=== PATIENT | male | born 1950 | race Caucasian/White ===

== ENCOUNTER → 2021-10-11 14:09 | Outpatient (BNVA) | payer MEDICARE, SELFPAY | PROVIDERS: PCP Internal Medicine; Visit Provider Psychiatry & Neurology Neurology | DX: G25.0 Essential tremor (principal); G47.9 Sleep disorder, unspecified | CPT/HCPCS: 99212 ==

== ENCOUNTER 2023-09-07 10:13 | Outpatient (AMB) | payer MEDICARE, SELFPAY ==
--- NOTE | 2023-09-07 10:15 | MHC.OFFVIS ---
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 Patient Services Technician Required: No Allergies aspirin [ASPIRIN] Allergy (Severe, Verified 09/07/23 10:16) CANNOT TAKE-RENAL TRANSPLANT Medication List - Last Reconciled 09/07/23 by Ester Ontiveros MD acetaminophen (Tylenol Extra Strength) 500 mg PO Q6H PRN allopurinol 100 mg PO DAILY atorvastatin 40 mg PO DAILY lorazepam 2 mg PO BEDTIME PRN losartan 25 mg PO DAILY metoprolol succinate ER 25 mg PO DAILY mycophenolate sodium (Myfortic) 4 mg PO BID paricalcitol 2 mcg PO 2XW prednisone 2.5 mg PO DAILY primidone 100 mg (2 x 50 mg) PO BID HPI Comments Details: 73y/o male comes for follow up of his familial tremors after 2 years . His tremors have worsenned and primiodne is not helping him.He tried primidone 50 mg 6 tabs qam and it did not help. He cannot write, had trouble eating with a fork, any actions that needs hand dexterity is hard. He is able to drink fluids.In the evenings he takes alcohol- gin and tonic and sometimes beer which helps his tremor His tremors are worse in the mornings No side effects from primidone PFSH Medical History (Updated 10/11/21 @ 14:24 by Ester Ontiveros MD) CAD (coronary artery disease) Cataract Heart disease COPD (chronic obstructive pulmonary disease) HTN (hypertension) Surgical History (Updated 09/07/23 @ 10:30 by Ester Ontiveros MD) Kidney transplant recipient Hx of shoulder surgery H/O heart surgery Hx of cholecystectomy Family History Father Tremor Family/Other Cancer Social History Alcohol intake: current Patient Tobacco Use Status: Never used Tobacco Physical Exam Vital Signs: Last Vital Signs Pulse 72 09/07/23 10:16 Resp 17 09/07/23 10:16 BP 120/60 09/07/23 10:16 Pulse Ox 99 09/07/23 10:16 Oxygen Delivery Method Room Air 09/07/23 10:16 Const General: cooperative, healthy appearing and comfortable Nutritional Appearance: average body habitus Orientation/consciousness: patient oriented x3 Eyes Pupils: Equal, round and reactive pupils present Neuro Other: BilUE action and postural tremors General: patient oriented x3, tone normal, moves all extremities and no focal motor deficits Cranial nerves: Yes Equal, round and reactive pupils present, Yes Bilaterally intact EOM present, Yes Nystagmus not present, Yes Normal facial strength present and Yes Midline tongue present Motor exam (neuro): 5/5 motor strength present throughout Coordination: [id number] test normal Assessment & Plan Assessment & Plan (1) 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
[2023-09-07 10:16] VITALS: BP 120/60; PULSE 72; RESP 17; O2SAT 99
== END 2023-09-07 10:44 | disposition home or self-care (01) ==
PROVIDERS: PCP Internal Medicine; Visit Provider Psychiatry & Neurology Neurology
DX: G25.0 Essential tremor (principal); G47.9 Sleep disorder, unspecified
CPT/HCPCS: 99214

== ENCOUNTER → 2023-09-07 10:13 | Outpatient (BNVA) | payer MEDICARE, SELFPAY | PROVIDERS: PCP Internal Medicine; Visit Provider Psychiatry & Neurology Neurology | DX: G25.0 Essential tremor (principal); G47.9 Sleep disorder, unspecified; Z79.52 Long term (current) use of systemic steroids; Z94.0 Kidney transplant status | CPT/HCPCS: 99212 ==

== ENCOUNTER 2024-03-16 09:32 | Outpatient (AMB) | payer MEDICARE, SELFPAY ==
--- NOTE | 2024-03-16 09:40 | MHC.OFFVIS ---
Vital Signs 03/16/24 09:41 Height 5 ft 10.5 in Weight 168 lb BMI 23.8 BP 124/82 Blood Pressure Location Rt brachial Position Sitting Intake Visit Reasons: Follow Up Intake Note: Patient presents for follow up Allergies aspirin [ASPIRIN] Allergy (Severe, Verified 03/16/24 09:40) CANNOT TAKE-RENAL TRANSPLANT Medication List - Last Reconciled 03/16/24 by Ester Ontiveros MD acetaminophen (Tylenol Extra Strength) 500 mg PO Q6H PRN allopurinol 100 mg PO DAILY atorvastatin 40 mg PO DAILY lorazepam 2 mg PO BEDTIME PRN mycophenolate sodium (Myfortic) 4 mg PO BID paricalcitol 2 mcg PO 2XW prednisone 2.5 mg PO DAILY primidone 150 mg (3 x 50 mg) PO BID propranolol 20 mg PO BID HPI Comments Details: 73y/o male comes for follow up of his familial tremors .He didn't notice nay improvement with propranolol.For the past 1month he has been waking up in the middle of the night with acid reflux and vomiting. He snores when he sleep supine. No gasping arousals . He cannot write, had trouble eating with a fork, any actions that needs hand dexterity is hard. He is able to drink fluids.In the evenings he takes alcohol- gin and tonic and sometimes beer which helps his tremor His tremors are worse in the mornings No side effects from primidone PFSH Medical History CAD (coronary artery disease) Cataract Heart disease COPD (chronic obstructive pulmonary disease) HTN (hypertension) Surgical History Kidney transplant recipient Hx of shoulder surgery H/O heart surgery Hx of cholecystectomy Family History Father Tremor Family/Other Cancer Social History Alcohol intake: current Patient Tobacco Use Status: Never used Tobacco Physical Exam Vital Signs: Last Vital Signs BP 124/82 03/16/24 09:41 BMI result Body Mass Index 23.8 Const General: cooperative, healthy appearing and comfortable Nutritional Appearance: average body habitus Orientation/consciousness: patient oriented x3 Eyes Pupils: Equal, round and reactive pupils present Neuro Other: BilUE action and postural tremors General: patient oriented x3, tone normal, moves all extremities and no focal motor deficits Cranial nerves: Yes Equal, round and reactive pupils present, Yes Bilaterally intact EOM present, Yes Nystagmus not present, Yes Normal facial strength present and Yes Midline tongue present Motor exam (neuro): 5/5 motor strength present throughout Coordination: [id number] test normal Assessment & Plan Assessment & Plan (1) 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
[2024-03-16 09:41] VITALS: BP 124/82; BMI 23.8
== END 2024-03-16 10:00 | disposition home or self-care (01) ==
PROVIDERS: PCP Internal Medicine; Visit Provider Psychiatry & Neurology Neurology
DX: G25.0 Essential tremor (principal); G47.9 Sleep disorder, unspecified
CPT/HCPCS: 99214; G2211

== ENCOUNTER → 2024-03-16 09:32 | Outpatient (BNVA) | payer MEDICARE, SELFPAY | PROVIDERS: PCP Internal Medicine; Visit Provider Psychiatry & Neurology Neurology | DX: G25.0 Essential tremor (principal); G47.9 Sleep disorder, unspecified; Z94.0 Kidney transplant status | CPT/HCPCS: 99212 ==

== ENCOUNTER 2024-06-28 14:08 | Outpatient (AMB) | payer MEDICARE, SELFPAY ==
[2024-06-28 14:11] VITALS: BP 112/80; BMI 23.5
--- NOTE | 2024-06-28 14:11 | A.OFFVIS_ITS ---
Vital Signs 06/28/24 14:11 Height 5 ft 10.5 in Weight 166 lb BMI 23.5 BP 112/80 Blood Pressure Location Rt brachial Position Sitting Intake Visit Reasons: 3 mnts f/u appt Intake Note: Patient following up on medication adjustment. Allergies aspirin [ASPIRIN] Allergy (Severe, Verified 06/28/24 14:13) CANNOT TAKE-RENAL TRANSPLANT HPI Comments Details: 74y/o male comes for follow up of his familial tremors .He didn't notice any improvement with propranolol. He cannot write, had trouble eating with a fork, any actions that needs hand dexterity is hard. He is able to drink fluids.In the evenings he takes alcohol- gin and tonic and sometimes beer which helps his tremor His tremors are worse in the mornings No side effects from primidone PFSH Medical History CAD (coronary artery disease) Cataract Heart disease COPD (chronic obstructive pulmonary disease) HTN (hypertension) Surgical History Kidney transplant recipient Hx of shoulder surgery H/O heart surgery Hx of cholecystectomy Family History Father Tremor Family/Other Cancer Social History Alcohol intake: current Patient Tobacco Use Status: Never used Tobacco Physical Exam Vital Signs: Last Vital Signs BP 112/80 06/28/24 14:11 BMI result Body Mass Index 23.5 Const General: cooperative, healthy appearing and comfortable Nutritional Appearance: average body habitus Orientation/consciousness: patient oriented x3 Eyes Pupils: Equal, round and reactive pupils present Neuro Other: BilUE action and postural tremors General: patient oriented x3, tone normal, moves all extremities and no focal motor deficits Cranial nerves: Yes Equal, round and reactive pupils present, Yes Bilaterally intact EOM present, Yes Nystagmus not present, Yes Normal facial strength present and Yes Midline tongue present Motor exam (neuro): 5/5 motor strength present throughout Coordination: [id number] test normal Assessment & Plan Assessment & Plan (1) 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 * pt has no contraindications to external upper limb tremor stimulator therapy * external upper limb tremor stimulator is being prescribed to treat the beneficiary's dominant upper limb * If medically appropriate, tremor exacerbating medications have been reduced or eliminated * at least 2 pharmacological treatment options for management of ET symptoms h ave been tried and failed or considered and ruled out- primidone and propranolol * external upper limb tremor stimulator therapy is being prescribed as an alternative to invasive and/or permanent surgical treatment options See attached BF- ADL scale Coding Level of Care Code Est Pt Level 4 (18950) Complex EM visit Add On G2211 Diagnoses Benign familial tremor G25.0 Sleep disorder G47.9
--- OUTSIDE RECORDS SUMMARY | 2024-06-28 17:40 | XMS_ITS | Encounter Summary ---
Author Organization [facility], Address [address] [place] [address] Phone Care Team Providers Care Oven Heater Helper Name Role Phone Onelia Vera MD Primary Care Provider Encounter Details Date Type Department Care Team (Late st Contact Info) Description 04/30/2022 Documentation Only [facility], [address] [place] [phone] Candie Hopkins [address] [place] [address] Social History Tobacco Use Types Packs/Day Years Used Date Smoking Tobacco: Never Smokeless Tobacco: Never Alcohol Use Standard Drinks/Week Comments No 0 (1 standard drink = 0.6 oz pure alcohol) Alcoholic Drinks/day: Occasional social drink Sex and Gender Information Value Date Recorded Sex Assigned at Not on file Legal Sex Male 4:31 PM EST Gender Identity Not on file Sexual Orientation Not on file documented as of this encounter Plan of Treatment Upcoming Encounters Date Type Department Care Team (Late st Contact Info) Description 07/07/2024 2:00 PM EDT Office Visit [facility] [address] [place] [phone] Sarath Rivera MD [address] [place] [phone] documented as of this encounter Visit Diagnoses Not on filedocumented in this encounter Care Teams Oven Heater Helper Relationship Specialty Start Date End Date Onelia Vera MD [address] [place] [address] PCP - General 02/08/19 documented as of this encounter
--- OUTSIDE RECORDS SUMMARY | 2024-06-28 17:40 | XMS_ITS | Encounter Summary ---
Author Organization [facility], Address [address] [place] [address] Phone Care Team Providers Care Composite Laminator Name Role Phone Onelia Vera MD Primary Care Provider [phone] Reason for Visit * Reason Comments Med Refill Encounter Details Date Type Department Care Team (Late st Contact Info) Description 11/19/2022 Refill [facility] [address] [place] [phone] Geovanni Martinez PA Social History Tobacco Use Types Packs/Day Years [...] Visit [facility] [address] [place] [address] Sarath Rivera MD [address] [place] [phone] documented as of this encounter Visit Diagnoses Not on filedocumented in this encounter Care Teams Composite Laminator Relationship Specialty Start Date End Date Odulio, Onelia P, MD [address] [place] [address] PCP - General 02/08/19 documented as of this encounter
--- OUTSIDE RECORDS SUMMARY | 2024-06-28 17:40 | XMS_ITS | Encounter Summary ---
Author Organization [facility], Address [address] [place] [address] Phone Care Team Providers Care Air Cargo Ground Crew Supervisor Name Role Phone Onelia Vera MD Primary Care Provider [phone] Encounter Details Date Type Department Care Team (Late st Contact Info) Description 06/06/2024 Telephone [facility], [address] [place] [phone] Paula Saldana [place] [address] [place] [address] Social History Tobacco Use Types [...] on file documented as of this encounter Miscellaneous Notes * Telephone Encounter - Latia Rai RN - 06/13/2024 10:05 AM EDT Pt called back to confirm July appt. * Telephone Encounter - Paula Saldana MA - 06/06/2024 9:34 AM EST Lm on vm letting pt know due to a change in the providers schedule we had to move his appt for 06/08/24 and move it to 07/07/24 Lm on all the phone numbers listed documented in this encounter Plan of Treatment Upcoming Encounters Date Type Department Care Team (Late st Contact Info) Description 07/07/2024 2:00 PM EDT Office Visit [facility] [address] [place] [phone] Sarath Rivera MD [address] [place] [address] [place] [phone] documented as of this encounter Visit Diagnoses Not on filedocumented in this encounter Care Teams Air Cargo Ground Crew Supervisor Relationship Specialty Start Date End Date Onelia Vera MD [address] [place] [address] PCP - General 02/08/19 documented as of this encounter
--- OUTSIDE RECORDS SUMMARY | 2024-06-28 17:40 | XMS_ITS | Encounter Summary ---
Author Organization [facility], Address [address] [place] [address] Phone Care Team Providers Care Professor Of Engineering Name Role Phone Onelia Vera MD Primary Care Provider Reason for Visit * Reason Onset Date Comments Med Refill 06/18/2022 Encounter Details Date Type Department Care Team (Late st Contact Info) Description 06/18/2022 Refill [facility] [address] [place] [phone] Geovanni Martinez PA Social History Tobacco Use [...] Office Visit [facility] [address] [place] [phone] Sarath Rivera MD [address] [place] [address] [place] [phone] documented as of this encounter Visit Diagnoses Not on filedocumented in this encounter Care Teams Professor Of Engineering Relationship Specialty Start Date End Date Onelia Vera MD [address] [place], [place] [phone] PCP - General 02/08/19 documented as of this encounter
--- OUTSIDE RECORDS SUMMARY | 2024-06-28 17:40 | XMS_ITS | Encounter Summary ---
Author Organization [facility], Address [address] [place] [address] Phone Care Team Providers Care Prop Setter Name Role Phone Onelia Vera MD Primary Care Provider [phone] Reason for Visit * Reason Comments Med Refill Encounter Details Date Type Department Care Team (Late st Contact Info) Description 08/12/2020 [facility]ill [facility] [address] [place] [address] Geovanni Martinez PA Social History Tobacco Use [...] on file Sexual Orientation Not on file COVID-19 Exposure Response Date Recorded In the last month, have you been in contact with someone who was confirmed or suspected to have Coronavirus / COVID-19? No / Unsure 07/16/2020 9:18 AM EDT documented as of this encounter Plan of Treatment Upcoming Encounters Date Type Department Care Team (Late Contact Info) Description 07/07/2024 2:00 PM EDT Office Visit [facility] [address] [place] [address] Sarath Rivera MD [address] [place] [address] [place] [address] documented as of this encounter Visit Diagnoses Not on filedocumented in this encounter Care Teams Prop Setter Relationship Specialty Start Date End Date Onelia Vera MD [address] [place] [address] [address] [place] [address] PCP - General 02/08/19 documented as of this encounter
--- OUTSIDE RECORDS SUMMARY | 2024-06-28 17:40 | XMS_ITS ---
Author Organization [facility] Care Team Providers Care Distance Learning Administrator Name Role Phone Octavia Keita Unavailable Unavailable Eamon Williamson Unavailable Unavailable Angelita Fletcher Unavailable Unavailable Doron Hernandez Unavailable Unavailable Marcie Marrero Unavailable Unavailable Allergies and adverse reactions Code CodeSystem Substance Reaction Severity StartDate Concern Status Tree Pollen Unknown 03/24/2022 active Pollen Unknown 03/24/2022 active Care Team Name Role Address Phone Organization Dates Eamon Williamson PCP [address] [facility] [address], [place], [address], [place] (Office): [facility] 03/24/2022 - 04/03/2022 Octavia Keita Attending Physician [address] [facility] [address], [place], [address], [place] (Office): [facility] 03/24/2022 - 04/03/2022 Angelita Fletcher Attending Physician [address] [facility] [address], [place], [address], [facility] (Office): [facility] 03/24/2022 - 04/03/2022 Doron Hernandez Attending Physician [address] [facility], [place], [address], [place] (Office): [facility] 03/24/2022 - 04/03/2022 Marcie Marrero Attending Physician [address] [place], [address], [place] (Office): [facility] 03/24/2022 - 04/03/2022 Goals Section Description Status Target Date Intake of meals greater than or equal to 95% or as tolerated. Active 07/02/2022 Maintain weight 152lbs +/- < 5%, gradual weight gain is acceptable/beneficial. Active 07/02/2022 Martinez will participate in ind ependent leisure activities of choice through the next review date. Active 07/02/2022 Asaf will not complaint of worsening tremors Active 07/02/2022 Minimize risk for falls Active 07/03/19 No s/s aspiration or dehydration. Active 07/02/2022 Nutrition related labs at baseline for medical c onditions. Active 07/02/2022 Parathyroid gland will be treated Active 07/02/2022 Resident will not exhibit s/ sx of COVD-19 through next care plan review Active 07/02/2022 Skin to remain intact. Active Skin will remain free of nyasia akdown within limits of disease process Active 07/02/2022 Will be discharged to home w hen clinical and rehabilitation goals are met Active 07/02/2022 Will be free from signs and symptoms of infectio n Active 07/02/2022 Will exhibit electrolyte bal ance and blood pressure control within limits Active 07/02/2022 Will exhibit no acute cardia c distress such as complaints of chest pain, cyanosis, SOB, etc. Active 07/02/2022 Will exhibit no signs or symptoms of gastric dis tress Active 07/02/2022 Will express that pain management is within acce ptable limits Active 07/02/2022 Will have no acute respiratory distress Active 07/02/2022 Will have no adverse effects related to all ASA therapy Active 07/02/2022 Will have no adverse effects related to anticoag ulant therapy Active 07/02/2022 Will have no adverse effects related to steroid therapy Active 07/02/2022 Will have no irreversible adverse effects relate d to drug therapy Active 07/02/2022 Will have no skin breakdown Active 06/05 Will maintain adequate hydration Active 07/02/2022 Will not develop signs/symptoms of dehydration A ctive 07/02/2022 Will not exhibit abnormal bleeding or abdominal pain Active 07/02/2022 Will not experience an acute exacerbation requiring hospitalization Active 07/02/2022 Will reduce risk of fluid volume deficit Active 07/02/2022 Will restore regular bowel movements Active 07/02/2022 Will show improvement in mood/behavior Active 07/02/2022 Will show no side effects of medication use Acti ve 07/02/2022 Will show no signs of dehydration or fluid overl oad Active 07/02/2022 Will tolerate diet, texture and fluid consistency without signs and symptoms of aspiration Active 07/02/2022 Mental Status Section Date Assessment Total Score Description 04/03/2022 CAM 0 No delirium ind icated 03/27/2022 BIMS 15 cognitively int act CAM 0 No delirium ind icated PHQ-9 02 minimal depress ion Problems Problem # Description Date of onset Resolved Date Code CodeSystem Concern Status 1 ACUTE KIDNEY FAILURE, UNSPECIFIED 03/24/[address] active 2 ANEMIA IN CHRONIC KIDNEY DISEASE 03/24/[address] active 3 ATHEROSCLEROTIC HEART DISEASE OF [place] CORONARY ARTERY WITHOUT ANGINA PECTORIS 03/24/[address] active 4 CHRONIC OBSTRUCTIVE PULMONARY DISEASE, UNSPECIFIED 03/24/[address] active 5 DEHYDRATION 03/24/[address] active 6 DIFFICULTY IN WALKING, NOT ELSEWHERE CLASSIFIED 03/24/[address] active 7 END STAGE RENAL DISEASE 03/24/[address] active 8 ESSENTIAL (PRIMARY) HYPERTENSION 03/24/[address] active 9 GOUT, UNSPECIFIED 03/24/[address] active 10 HEREDITARY NEPHROPATHY, NOT ELSEWHERE CLASSIFIED WITH UNSPECIFIED MORPHOLOGIC LESIONS 03/24/[address] active 11 HYPERKALEMIA 03/24/[address] active 12 KIDNEY TRANSPLANT STATUS 03/24/[address] active 13 MALIGNANT NEOPLASM OF PROSTATE 03/24/[address] active 14 MALIGNANT NEOPLASM OF UNSPECIFIED MAIN BRONCHUS 03/24/[address] active 15 MUSCLE WEAKNESS (GENERALIZED) 03/24/[address] active 16 PERSONAL HISTORY OF COVID-19 03/24/[address] active 17 PNEUMONIA, UNSPECIFIED ORGANISM 03/24/[address] active 18 POST COVID-19 CONDITION, UNSPECIFIED 03/24/20 U09.9 ICD-10-CM active 19 PRESENCE OF CORONARY ANGIOPLASTY IMPLANT AND GRAFT 03/24/[address] active 20 SEVERE SEPSIS WITHOUT SEPTIC SHOCK 03/24/[address] active 21 TREMOR, UNSPECIFIED 03/24/[address] active 22 UNSTEADINESS ON FEET 03/24/[address] active Reason for Referral No Reasons for Referral Entered Social History Social History Observation Description Start Date End Date Code Code System Current Smoking Status Tobacco smoking consumption unknown 435334336 SNOMED CT Sex Assigned At Male 1950 97822-0 [facility] Vital Signs Code Code System Vitals Name Values and Units Timing Information 40814-4 [facility] Pain Level Value=9.0 04/03/2022 71520-1 [facility] O2 % BldC Oximetry Value=96.0 Units= % 04/03/2022 9279-1 INC Respiratory Rate Value=18.0 Units=/m in 04/03/2022 8310-5 [facility] Body Temperature Value=98.7 Units=?? F 04/03/2022 8867-4 [facility] Heart rate Value=64.0 Units=/min 8462-4 [facility] Blood Pressure-Diastolic Value=70 Un its=mmHg 04/03/2022 8480-6 [facility] Blood Pressure-Systolic Sxoad=792 Un its=mmHg 04/03/2022 96261-2 [facility] Weight Zhmyn=031.0 Units=Lbs 8302-2 [facility] Height Value=71.0 Units=Inches 03/25/2022
--- OUTSIDE RECORDS SUMMARY | 2024-06-28 17:40 | XMS_ITS | Clinical Summary ---
Author Organization [facility] Address [address] [place] [address] Care Team Providers Care Crop Roller Name Role Phone Onelia Vera MD Primary Care Provider [phone] Surgical History Surgery Date Site/Laterality Comments JOINT REPLACEMENT PROCEDURE:JOINT REPLACEMENT JOINT REPLACEMENT Bilateral PROCEDURE:JOINT REPLACEMENT;COMMENT:knees OTHER SURGICAL HISTORY Bilateral PROCEDURE:kidney transplanat Medical History Medical History Date Comments Kidney disease DX:Kidney diseas e Cancer (CMS/HCC) DX:Cancer (HCC) ;COMMENT:lung, kidney and esophageal Social History Tobacco Use Types Packs/Day Years Used Date Smoking Tobacco: Former Cigarettes 0 1964 - 1993 Smokeless Tobacco: Never Alcohol Use Standard Drinks/Week Comments Yes 14 (1 standard drink = 0.6 oz pu re alcohol) Sex and Gender Information Value Date Recorded Sex Assigned at Not on file Legal Sex Male 12:46 PM EST Gender Identity Not on file Sexual Orientation Not on file Obstetrics History Plan of Treatment Health Maintenance Due Date Last Done Comments COVID-19 Vaccine (#1) 1955 DTaP,Tdap,and Td Vaccines (1 - Tdap) 06/13/1967 Pneumococcal Vaccine: 50+ Ye ars (1 of 2 - PCV) 06/13/1967 Zoster Vaccines (1 of 2) 06/13/1967 Cholesterol Screening (Lipid Panel) 05/05/2023 Depression Screening 05/05/2023 Falls Risk Assessment 05/05/2023 Hepatitis C Screening 05/05/2023 Social Influencers of Health Screening 05/05/2023 RSV Immunization Patients 60 + Years Old (1 - 1-dose 75+ series) 06/13/2023 Influenza Vaccine (#1) 2023 HIB Vaccines Aged Out No longer eligi ble based on patient's age to complete this topic HPV Vaccines Aged Out No longer eligi ble based on patient's age to complete this topic Hepatitis A Vaccines Aged Out No long er eligible based on patient's age to complete this topic Hepatitis B Vaccines Aged Out No long er eligible based on patient's age to complete this topic IPV Vaccines Aged Out No longer eligi ble based on patient's age to complete this topic MMR Vaccines Aged Out No longer eligi ble based on patient's age to complete this topic Meningococcal ACWY Vaccine Aged Out N o longer eligible based on patient's age to complete this topic Meningococcal B Vacine Aged Out No lo nger eligible based on patient's age to complete this topic RSV Immunization Patients Un caitlin 20 months Aged Out No longer eligible b ased on patient's age to complete this topic Varicella Vaccines Aged Out No longer eligible based on patient's age to complete this topic Care Teams Crop Roller Relationship Specialty Start Date End Date Onelia Vera MD [address] [place] [id number] PCP - General 03/03/22
--- OUTSIDE RECORDS SUMMARY | 2024-06-28 17:40 | XMS_ITS | Encounter Summary ---
Author Organization [facility], Address [address] [place] [phone] Phone Care Team Providers Care Manager Learning Name Role Phone Onelia Vera MD Primary Care Provider Reason for Visit * Reason Comments Med Refill Encounter Details Date Type Department Care Team (Late st Contact Info) Description 12/19/2022 Refill [facility] [address] [place] [phone] Sarath Rivera MD [address] [place] [address] [place] [phone] Social History Tobacco Use Types Packs/Day Years [...] Visit [facility] [address] [place] [phone] Sarath Rivera MD [address] [place] [address] [place] [phone] documented as of this encounter Visit Diagnoses Not on filedocumented in this encounter Care Teams Manager Learning Relationship Specialty Start Date End Date Onelia Vera MD [address] [place] [id number] PCP - General 02/08/19 documented as of this encounter
--- OUTSIDE RECORDS SUMMARY | 2024-06-28 17:40 | XMS_ITS | Encounter Summary ---
Author Organization [facility], Address [address] [place] [phone] Phone Care Team Providers Care Financial Accountant Name Role Phone Onelia Vera MD Primary Care Provider [phone] Reason for Visit * Reason Comments Med Refill Encounter Details Date Type Department Care Team (Late st Contact Info) Description 11/06/2021 [facility]ill [facility] [address] [place] [phone] Geovanni Martinez PA Social History Tobacco Use [...] Visit [facility] [address] [place] [address] Sarath Rivera MD [address] [facility] [place] [phone] documented as of this encounter Visit Diagnoses Not on filedocumented in this encounter Care Teams Financial Accountant Relationship Specialty Start Date End Date Odulio, Onelia P, MD [address] [place] [phone] PCP - General 02/08/19 documented as of this encounter
--- OUTSIDE RECORDS SUMMARY | 2024-06-28 17:40 | XMS_ITS | Clinical Summary ---
Author Organization [facility] Address [address] [place] [address] Care Team Providers Care Manager Intelligence Name Role Phone Onelia Vera MD Primary Care Provider Allergies Active Allergy Reactions Criticality Noted Date Comments Seasonal 03/24/2022 Medications Medication Sig Dispensed Refills Start Date End Date Status ammonium lactate (AMLACTIN) 12 % cream Apply 1 application topically 2 (two) times a day. 0 02/07/2022 Active atorvastatin (LIPITOR) tablet 40 mg Take 1 tablet (40 mg total) by mouth every night at bedtime. 0 01/07/2022 Active mycophenolate (MYFORTIC) 180 MG EC tablet Take 3 tablets (540 mg total) by mouth 2 (two) times a day. 0 02/05/2022 Active paricalcitol (ZEMPLAR) 2 MCG capsule Take 1 capsule (2 mcg total) by mouth 3 (three) times a week. 0 01/06/2022 Active primidone (MYSOLINE) 50 MG tablet Take 3 tablets (150 mg total) by mouth 2 (two) times a day. 0 02/14/2022 Active LORazepam (ATIVAN) 0.5 MG tablet Take 1 tablet (0.5 mg total) by mouth every night at bedtime as needed. 0 02/13/2022 Active predniSONE (DELTASONE) tablet 2.5 mg Take 1 tablet (2.5 mg total) by mouth every other day. 0 01/06/2022 Active benzonatate (TESSALON) 100 MG capsule Take 1 capsule (100 mg total) by mouth 3 (three) times a day as needed for cough. 20 capsule 0 03/05/2022 Active aspirin 81 MG chewable tablet Chew 1 tablet (81 mg total) by mouth. 0 03/25/2022 Active LORazepam (ATIVAN) 0.5 MG tablet Take 3 tablets (1.5 mg total) by mouth. 0 03/15/2019 Active predniSONE (DELTASONE) 2.5 MG split tablet Take 2 split tablet (5 mg total) by mouth. 0 03/12/2022 Active acetaminophen (TYLENOL) 325 MG tablet Take 2 tablets (650 mg total) by mouth. 0 04/02/2022 Active atorvastatin (LIPITOR) tablet 40 mg Take 1 tablet (40 mg total) by mouth. 0 Active Cholecalciferol 25 MCG (1000 UT) capsule Take 1 capsule by mouth daily. 0 01/18/2020 Active colestipol (COLESTID) 1 g tablet TAKE UP TO 5 TABLETS BY MOUTH DAILY FOR DIARRHEA . MUST TAKE THIS 2 HOUR SEPARATE FROM OTHER MEDS 0 04/17/2022 Active cyclobenzaprine (FLEXERIL) 5 MG tablet Take 1 tablet (5 mg total) by mouth. 0 04/04/2022 Active losartan (COZAAR) tablet 25 mg Take 1 tablet (25 mg total) by mouth daily. 0 05/27/2019 Active metoprolol succinate (TOPROL-XL) 24 hr tablet 25 mg Take 1 tablet (25 mg total) by mouth. 0 05/27/2019 Active primidone (MYSOLINE) 50 MG tablet Take 1 tablet (50 mg total) by mouth. 0 06/13/2019 Active mycophenolate (MYFORTIC) 180 MG EC tablet Take 3 tablets (540 mg total) by mouth. 0 11/06/2021 Active paricalcitol (ZEMPLAR) 2 MCG capsule Take by mouth. 0 11/07/2019 Active Active Problems Problem Noted Date Diagnosed Date Anemia 05/09/2022 Acute renal failure (ARF) 03/03/2022 COVID 03/03/2022 Social History Tobacco Use Types Packs/Day Years Used Date Smoking Tobacco: Former Cigarettes 0 1964 - 1993 Smokeless Tobacco: Never Tobacco Cessation:Counseling Given: Not Answered Alcohol Use Standard Drinks/Week Comments Yes 14 (1 standard drink = 0.6 oz pu re alcohol) Sex and Gender Information Value Date Recorded Sex Assigned at Male 03/03/2022 11:49 AM EST Gender Identity Male 03/03/2022 11:49 AM EST Sexual Orientation Straight 03/03/2022 5: 06 PM EST Job Start Date Occupation Industry Not on file Not on file Not on file Last Filed Vital Signs Vital Sign Reading Time Taken Comments Blood Pressure 113/70 05/16/2022 11:32 AM EST Pulse 84 05/16/2022 11:32 AM EST Temperature 36.4 ??C (97.6 ??F) 05/16/2022 11:[address] Respiratory Rate 18 05/16/2022 11:32 AM EST Oxygen Saturation 100% 05/16/2022 11:32 AM EST Inhaled Oxygen Concentration - - Weight 72.6 kg (160 lb) 05/12/2022 11:45 AM EST Height 180.3 cm (5' 11 ) 05/12/2022 11:45 AM EST Body Mass Index 22.32 05/12/2022 11:45 AM EST Plan of Treatment Health Maintenance Due Date Last Done Comments Hepatitis C Screening 1950 COVID-19 Vaccine (#1) 1953 Depression Screening 1960 Preventative Health Evaluation 1966 Shingrix-Zoster Vaccine (1 of 2) 06/13/1967 Fall Risk Assessment 2013 RSV Adult > 60+ Yrs or (1 - 1-dose 75+ series) 06/13/2023 Influenza Vaccine (#1) 2023 , 02/05/2020, 03/17/2018, Additional history exists DTap / Tdap / Td (2 - Td or Tdap) 07/05/2024 07/05/2014 Pneumococcal Vaccine Completed 12/26/2014, 07/05/2014, 12/22/2011 Hepatitis B Vaccines Aged Out No long er eligible based on patient's age to complete this topic RSV Ped < 20 months Aged Out No longe r eligible based on patient's age to complete this topic Additional Health Concerns Infection Onset Date Last Indicated COVID-19 Confirmed 03/03/2022 03/04/2022 Advance Directives For more information, please contact: [phone] Documents on File Type Date Recorded Patient Straight Knife Cutter Machine Expl anation Advance Directive and Living Will 03/03/2022 11:44 AM Latest Code Status on File Code Status Date Activated Date Inactivated Comments Full Code 03/03/2022 2:27 PM 03/05/2022 8:39 PM Thi s code status was ascertained in the following way: discussion with patient . Care Teams Manager Intelligence Relationship Specialty Start Date End Date Onelia Vera MD [address] [facility] [address] [place] [address] PCP - General Internal Medicine 03/03/22
--- OUTSIDE RECORDS SUMMARY | 2024-06-28 17:40 | XMS_ITS | Clinical Summary ---
Author Organization [facility], Address [address] [place] [address] Phone Care Team Providers Care Sales Floor Manager Name Role Phone Onelia Vera MD Primary Care Provider Allergies Active Allergy Reactions Criticality Noted Date Comments Other 06/02/2021 Other reaction(s): trees,pollen Medications amoxicillin (AMOXIL) 500 MG capsule Take 4 capsules by mouth 1 (one) time 03/09/2018 Active aspirin 81 MG tablet Take 1 tablet by mouth 1 (one) time each day Active allopurinol (ZYLOPRIM) 100 MG tablet Take 2 tablets by mouth 1 (one) time each day Active atorvastatin (LIPITOR) 40 MG tablet Take 1 tablet by mouth 1 (one) time each day Active clopidogrel (PLAVIX) 75 MG tablet Take 1 tablet by mouth 1 (one) time each day 01/22/2019 Active LORazepam (ATIVAN) 0.5 MG tablet Take 1 tablet by mouth if needed for anxiety 03/15/2019 Active ipratropium (ATROVENT) 0.03 % nasal spray U 2 SPRAYS IEN UP TO QID 07/18/2019 Active primidone (MYSOLINE) 50 MG tablet TAKE 1 T PO BID 06/13/2019 Active Spiriva Respimat 2.5 MCG/ACT aerosol solution INHALE 2 PUFFS INTO THE LUNGS QD 11/01/2019 Active Cholecalciferol (Vitamin D3) 25 MCG (1000 UT) capsule TAKE 1 CAPSULE BY MOUTH EVERY DAY 90 capsule 3 01/18/2020 Active fluticasone (FLONASE) 50 MCG/ACT nasal spray SHAKE LIQUID AND USE 1 SPRAY IN EACH NOSTRIL TWICE DAILY 07/19/2020 Active doxycycline (VIBRAMYCIN) 100 MG capsule TAKE 1 CAPSULE BY MOUTH TWICE DAILY WITH FOOD AND WATER FOR 5 DAYS STARTING 11/16/2020 HOLD ZINC FOR 5 DAYS 11/15/2020 Active colestipol (COLESTID) 1 g tablet 11/20/2020 Active primidone (MYSOLINE) 50 MG tablet Take 1 tablet by mouth in the morning and 1 tablet in the evening. 02/14/2022 Active paricalcitol (ZEMPLAR) 2 MCG capsule Take 1 capsule (2 mcg total) by mouth 3 (three) times a week 36 capsule 3 06/17/2023 Active propranolol (INDERAL) 20 MG tablet Take 20 mg by mouth in the morning and 20 mg in the evening. 09/07/2023 Active mycophenolate (MYFORTIC) 180 MG EC tablet Take 3 tablets (540 mg total) by mouth in the morning and 3 tablets (540 mg total) in the evening. 180 tablet 11 12/04/2023 Active predniSONE (DELTASONE) 2.5 MG tablet TAKE 1 TABLET BY MOUTH ONCE A DAY 90 tablet 3 04/04/2024 Active Active Problems Problem Noted Date Diagnosed Date Chronic kidney disease, stage 4 (severe) 023 Stage 3b chronic kidney disease 01/01/2022 Dyspnea 07/18/2020 Chronic diarrhea 09/20/2019 Essential hypertension 05/27/2019 Chronic kidney disease due to hypertension 03/22 Gout 03/22/2019 History of immunosuppressive therapy 03/22/2019 History of renal transplant 03/22/2019 Hyperlipidemia 03/22/2019 Chronic obstructive pulmonary disease 03/22/2019 Coronary arteriosclerosis 03/22/2019 Resolved Problems Problem Noted Date Diagnosed Date Resolved Date Stage 3a chronic kidney disease 05/22/2020 09/14/2020 Chronic kidney disease stage 4 03/22/2019 09/14/2020 Encounters Date Type Department Care Team Description 06/06/2024 Telephone [facility] [place], [address] [place] [address] Paula Saldana MA 04/13/2024 9:30 AM EST Office Visit [facility] [address] [place] [address] Geovanni Martinez PA History of renal transplant (Primary Dx); History of immunosuppressive therapy; Chronic kidney disease, stage 4 (severe) (HCC) 04/03/2024 Refill [facility] [address] [place] [address] Geovanni Martinez PA from Last 3 Months Immunizations Name Administration Dates Next Due Influenza Split High Dose Pr eservative Free IM 02/05/2020 Influenza Whole 03/08/2014,02/18/2006 Influenza, MDCK, Quadrivalen t, with preservative 12/11/2016 Influenza, Unspecified 02/07/2020,2017,01/04/2017,04/06,01/04/2015,12/22/2011 Pneumococcal Conjugate 13-Valent 07/05/2014 Pneumococcal Polysaccharide 12/26/2014, 2 Tdap 07/05/2014 Family History Medical History Relation Comments Stroke Father Diabetes Mother Heart disease Sibling brother CT Relation Status Comments Father Mother Sibling Social History Tobacco Use Types Packs/Day Years [...] on file Sexual Orientation Not on file Last Filed Vital Signs Vital Sign Reading Time Taken Comments Blood Pressure 130/74 04/13/2024 9:33 AM EST Pulse 72 02/23/2023 9:58 AM EST Temperature - - Respiratory Rate 22 07/28/2017 12:00 PM EDT Oxygen Saturation - - Inhaled Oxygen Concentration - - Weight 78.2 kg (172 lb 6.4 oz) 04/13/2024 9:33 A M EST Height 180.3 cm (5' 11 ) 04/13/2024 9:33 AM EST Body Mass Index 24.04 04/13/2024 9:33 AM EST Plan of Treatment Upcoming Encounters Date Type Department Care Team (Late st Contact Info) Description 07/07/2024 2:00 PM EDT Office Visit [facility] [address] [place] [address] Sarath Rivera MD [address] [place] [address] [place] [phone] Health Maintenance Due Date Last Done Comments Influenza Vaccine (#1) 2023 , 02/05/2020, 03/17/2018, Additional history exists Pneumococcal Vaccine: 65+ Years Completed 12/26/2014, 07/05/2014, 12/12/2011 Hepatitis B Vaccine Aged Out No longe r eligible based on patient's age to complete this topic Procedures Procedure Name Priority Date/Time Associated Diagnosis Comments IMMATURE CELLS Routine 04/08/2024 10:39 AM EST MYCOPHENOLIC ACID AND METABO. Routine 04/08/2024 10:39 AM EST History of renal transplant History of immunosuppressive therapy Stage 3b chronic kidney disease (HCC) Hyperlipidemia, not otherwise specified Proteinuria, not otherwise specified CREATINE KINASE Routine 04/08/2024 10:39 AM EST History of renal transplant History of immunosuppressive therapy Stage 3b chronic kidney disease (HCC) Hyperlipidemia, not otherwise specified Proteinuria, not otherwise specified ALT Routine 04/08/2024 10:39 AM EST History of renal transplant History of immunosuppressive therapy Stage 3b chronic kidney disease (HCC) Hyperlipidemia, not otherwise specified Proteinuria, not otherwise specified AST Routine 04/08/2024 10:39 AM EST History of renal transplant History of immunosuppressive therapy Stage 3b chronic kidney disease (HCC) Hyperlipidemia, not otherwise specified Proteinuria, not otherwise specified PROTEIN / CREATININE RATIO, URINE Routine 04/08/2024 10:39 AM EST History of renal transplant History of immunosuppressive therapy Stage 3b chronic kidney disease (HCC) Hyperlipidemia, not otherwise specified Proteinuria, not otherwise specified URINALYSIS, COMPLETE Routine 04/08/2024 10:39 AM EST History of renal transplant History of immunosuppressive therapy Stage 3b chronic kidney disease (HCC) Hyperlipidemia, not otherwise specified Proteinuria, not otherwise specified RENAL FUNCTION PANEL Routine 04/08/2024 10:39 AM EST History of renal transplant History of immunosuppressive therapy Stage 3b chronic kidney disease (HCC) Hyperlipidemia, not otherwise specified Proteinuria, not otherwise specified CBC AND DIFFERENTIAL Routine 04/08/2024 10:39 AM EST History of renal transplant History of immunosuppressive therapy Stage 3b chronic kidney disease (HCC) Hyperlipidemia, not otherwise specified Proteinuria, not otherwise specified MICROSCOPIC EXAMINATION - DO NOT USE Routine 04/08/2024 10:39 AM EST from Last 3 Months Results * (ABNORMAL) Immature Cells (04/08/2024 10:39 AM EST) Pathologist [facility] Myelocytes Relative 1(H) 0 - 0 % [facility] Promyelocytes Absolute 1(H) 0 - 0 % [facility] 04/08/2024 10:3 9 AM EST 04/08/2024 Geovanni ANNA LAB BLOOD ORDERABLES Final Re sult [facility] [address] [place] [address] * (ABNORMAL) Urinalysis, Complete w/reflex to Culture (04/08/2024 10:39 AM EST) Pathologist [facility] Specific [place], Urine 1.014 1.005 - 1.030 [facility] pH Urine 5.5 5.0 - 7.5 [facility] Color, Urine Yellow Yellow [facility] Appearance Urine Clear Clear [facility] WBC Esterase Urine Negative Negative [facility] Protein, Ur 1+(A) Negative/Tra ce [facility] [phone] Glucose, Ur Negative Negative [facility] [phone] Ketones, Urine Negative Negative [facility] [phone] Blood Urine Negative Negative [facility] [phone] Bilirubin Urine Negative Negative [facility] [phone] Urobilinogen Urine 0.2 0.2 - 1.0 mg/dL [facility] [phone] Nitrite, Urine Negative Negative [facility] [phone] Microscopic Examination See below: [facility] [phone] Comment:Microscopic was mychal cated and was performed. URINALYSIS REFLEX Comment [facility] [phone] Comment:This specimen will n ot reflex to a Urine Culture. Urine (Urine, Clean Catch) 04/08/2024 10:39 AM EST 04/08/2024 Geovanni ANNA LAB URINE ORDERABLES Final Re sult [facility] [address] [place] [address] * Mycophenolic Acid (04/08/2024 10:39 AM EST) Mycophenolic Acid 2.3 1.0 - 3.5 ug/mL [facility] Mycophenolic Acid Glucuronide 37 15 - 125 ug/mL [facility] Blood (Blood, Venous) 04/08/2024 10:39 AM EST 04/08/2024 Narrative [facility] - 04/14/2024 1:06 PM EST Test(s) 602233-Mqzjsanpquik Acid; 006967- Mycophenolic Acid Glucuronide was developed and its performance characteristics determined by [facility]. It has not been cleared or approved by the Food and Drug Administration. Geovanni ANNA LAB BLOOD ORDERABLES Final Re sult [facility] [address] [place] [address] * Microscopic Examination (04/08/2024 10:39 AM EST) WBC, Urine None seen 0 - 5 /hpf [facility] RBC, Urine None seen 0 - 2 /hpf [facility] Squamous Epithelial, Urine None seen 0 - 10 /hpf [facility] Casts None seen None seen /lpf [facility] Bacteria, Urine None seen None seen/Few [facility] 04/08/2024 10:3 9 AM EST 04/08/2024 Geovanni ANNA LAB MICROBIOLOGY - GENERAL OR DERABLES Final Result [facility] [address] [place] [address] * (ABNORMAL) Protein, Total, Random Urine w/Creatinine (Protein/Creat Ratio) (04/08/2024 10:39 AM EST) Creatinine, Ur 84.7 Not Estab. mg/dL [facility] Protein, Ur 27.7 Not Estab. mg/dL [facility] Urine Protein/Creati nine Ratio 327(H) 0 - 200 mg/g creat [facility] Urine (Urine, Clean Catch) 04/08/2024 10:39 AM EST 04/08/2024 Geovanni ANNA LAB URINE ORDERABLES Final Re sult [facility] [address] [place] [address] * (ABNORMAL) CBC and Differential (04/08/2024 10:39 AM EST) WBC 8.6 3.4 - 10.8 x10E3/uL [facility] RBC 4.03(L) 4.14 - 5.80 x10E6/uL [facility] Hemoglobin 11.9(L) 13.0 - 17.7 g/dL [facility] Hematocrit 38.5 37.5 - 51.0 % [facility] MCV 96 79 - 97 fL [facility] MCH 29.5 26.6 - 33.0 pg [facility] MCHC 30.9(L) 31.5 - 35.7 g/dL [facility] RDW 12.9 11.6 - 15.4 % [facility] Platelets 72(LL) 150 - 450 x10E3/uL [facility] Comment: Actual platelet count may be somewhat higher than reported due to aggregation of platelets in this sample. Neutrophils Relative 51 Not Estab. % [facility] Lymphocytes Relative 29 Not Estab. % [facility] Monocytes 13 Not Estab. % [facility] Eosinophils Relative 4 Not Estab. % [facility] Basophils Relative 1 Not Estab. % [facility] Immature Cells Note [facility] Neutrophils Absolute 4.4 1.4 - 7.0 x10E3/uL [facility] Lymphocytes Absolute 2.5 0.7 - 3.1 x10E3/uL [facility] Monocytes Absolute 1.1(H) 0.1 - 0.9 x10E3/uL [facility] Eosinophils Absolute 0.3 0.0 - 0.4 x10E3/uL [facility] Basophils Absolute 0.1 0.0 - 0.2 x10E3/uL [facility] Comment: Note: [facility] Comment:Manual differential was performed. Blood (Blood, Venous) 04/08/2024 10:39 AM EST 04/08/2024 Geovanni ANNA LAB BLOOD ORDERABLES Final Re sult Performing Organization Address [facility] de Phone Number [facility] [address] [place] [address] * ALT (04/08/2024 10:39 AM EST) ALT (SGPT) 10 0 - 44 IU/L [facility] Blood (Blood, Venous) 04/08/2024 10:39 AM EST 04/08/2024 Geovanni ANNA LAB BLOOD ORDERABLES Final Re sult Performing Organization Address [facility] de Phone Number [facility] [address] [place] [address] * AST (04/08/2024 10:39 AM EST) AST (SGOT) 14 0 - 40 IU/L [facility] Blood (Blood, Venous) 04/08/2024 10:39 AM EST 04/08/2024 Geovanni ANNA LAB BLOOD ORDERABLES Final Re sult [facility] [address] [place] [address] * CK (04/08/2024 10:39 AM EST) Creatine Kinase (CK/CPK) 197 41 - 331 U/L [facility] Blood (Blood, Venous) 04/08/2024 10:39 AM EST 04/08/2024 Geovanni ANNA LAB BLOOD ORDERABLES Final Re sult [facility] [address] [place] [address] * (ABNORMAL) Renal Function Panel (04/08/2024 10:39 AM EST) Pathologist [facility] Glucose 94 70 - 99 mg/dL [facility] BUN 38(H) 8 - 27 mg/dL [facility] Creatinine 2.28(H) 0.76 - 1.27 mg/dL [facility] eGFR CKD-EPI CR 2020 29(L) >59 mL/min/1.7 3 [facility] BUN/Creatinine Ratio 17 10 - 24 [facility] Sodium 137 134 - 144 mmol/L [facility] Potassium 4.7 3.5 - 5.2 mmol/L [facility] Chloride 105 96 - 106 mmol/L [facility] Bicarbonate (CO2) 20 20 - 29 mmol/L [facility] Calcium 9.2 8.6 - 10.2 mg/dL [facility] Albumin 4.0 3.8 - 4.8 g/dL [facility] Phosphorus 4.1 2.8 - 4.1 mg/dL [facility] Blood (Blood, Venous) 04/08/2024 10:39 AM EST 04/08/2024 Geovanni ANNA LAB BLOOD ORDERABLES Final Re sult [facility] [address] [place] [phone] from Last 3 Months Insurance MEDICARE [facility] Care Teams Sales Floor Manager Relationship Specialty Start Date End Date Onelia Vera MD [address] [place] [phone] PCP - General 02/08/19
--- OUTSIDE RECORDS SUMMARY | 2024-06-28 17:40 | XMS_ITS | Encounter Summary ---
Author Organization [facility], Address [address] [place] [address] Phone Care Team Providers Care Food Technology Teacher Name Role Phone Onelia Vera MD Primary Care Provider [phone] Reason for Visit * Reason Comments Med Refill Encounter Details Date Type Department Care Team (Late st Contact Info) Description 09/11/2020 Refill [facility] [address] [place] [phone] Deuce Shoemaker MD [address] [place] [address] Social History Tobacco Use Types Packs/Day [...] Visit [facility] [address] [place] [phone] Sarath Rivera MD [address] [place] [address] documented as of this encounter Visit Diagnoses Not on filedocumented in this encounter Care Teams Food Technology Teacher Relationship Specialty Start Date End Date Onelia Vera MD [address] [place] [phone] PCP - General 02/08/19 documented as of this encounter
--- OUTSIDE RECORDS SUMMARY | 2024-06-28 17:40 | XMS_ITS | Encounter Summary ---
Author Organization [facility], Address [address] [place] [address] Phone Care Team Providers Care Take Out Waitress Name Role Phone Onelia Vera MD Primary Care Provider Encounter Details Date Type Department Care Team (Late st Contact Info) Description 10/22/2021 Documentation Only [facility], [address] [place] [phone] [place], [place] [address] [place] [phone] Social History Tobacco Use Types Packs/Day Years [...] Visit [facility] [address] [place] [phone] Sarath Rivera MD [address] [place] [phone] documented as of this encounter Visit Diagnoses Not on filedocumented in this encounter Care Teams Take Out Waitress Relationship Specialty Start Date End Date Onelia Vera MD [address] [place] [phone] PCP - General 02/08/19 documented as of this encounter
== END 2024-06-28 14:30 | disposition home or self-care (01) ==
LOC: HO.HSMS 14:09
PROVIDERS: PCP Internal Medicine; Visit Provider Psychiatry & Neurology Neurology
DX: G25.0 Essential tremor (principal); G47.9 Sleep disorder, unspecified
CPT/HCPCS: 99214; G2211

== ENCOUNTER → 2024-06-28 14:08 | Outpatient (BNVA) | payer MEDICARE, SELFPAY | PROVIDERS: PCP Internal Medicine; Visit Provider Psychiatry & Neurology Neurology | DX: G25.0 Essential tremor (principal); G47.9 Sleep disorder, unspecified | CPT/HCPCS: 99212 ==

== ENCOUNTER 2024-09-27 15:15 | Outpatient (AMB) | payer MEDICARE, SELFPAY ==
[2024-09-27 15:26] VITALS: BMI 23.5
--- NOTE | 2024-09-27 15:26 | MHC.OFFVIS ---
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 patient trialing the Eric which started workng a week ago. Allergies aspirin (ASPIRIN) Allergy (Severe, Verified 09/27/24 15:33) CANNOT TAKE-RENAL TRANSPLANT HPI Comments Details: 74y/o male comes for follow up of his familial tremors .He didn't notice any improvement with propranolol so was startes on ERIC for his Right hand . He started using it 1 month ago but had some issues and it started working 1 week .It helps with activities of daily living.But the effect is not as consistent as he expected. He cannot write, had trouble eating with a fork, any actions that needs hand dexterity is hard. He is able to drink fluids.In the evenings he takes alcohol- gin and tonic and sometimes beer which helps his tremor His tremors are worse in the mornings No side effects from primidone PFSH Medical History CAD (coronary artery disease) Cataract Heart disease COPD (chronic obstructive pulmonary disease) HTN (hypertension) Surgical History Kidney transplant recipient Hx of shoulder surgery H/O heart surgery Hx of cholecystectomy Family History Father Tremor Family/Other Cancer Social History Alcohol intake: current Patient Tobacco Use Status: Never used Tobacco Physical Exam Vital Signs: BMI result Body Mass Index 23.5 Const General: cooperative, healthy appearing and comfortable Nutritional Appearance: average body habitus Orientation/consciousness: patient oriented x3 Eyes Pupils: Equal, round and reactive pupils present Neuro Other: Mild action tremors isatu General: patient oriented x3, tone normal, moves all extremities and no focal motor deficits Cranial nerves: Yes Equal, round and reactive pupils present, Yes Bilaterally intact EOM present, Yes Nystagmus not present, Yes Normal facial strength present and Yes Midline tongue present Motor exam (neuro): 5/5 motor strength present throughout Coordination: [id number] test normal Assessment & Plan Assessment & Plan (1) 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
--- OUTSIDE RECORDS SUMMARY | 2024-09-27 18:27 | XMS_ITS | Encounter Summary ---
Author Organization [facility] [place], Address [address] [address] Phone Care Team Providers Care Digital Asset Manager Name Role Phone Onelia Vera MD Primary Care Provider + [phone] Reason for Visit * Reason Comments Med Refill Encounter Details Date Type Department Care Team (Late Contact Info) Description 09/11/2020 Refill [facility] [place] [address] [place] [phone] Deuce Shoemaker MD [address] [place] [address] [place] [address] Social History Tobacco Use Types [...] Upcoming Encounters Date Type Department Care Team (Latest Contact Info) Description 09/28/2024 11:15 AM EDT Office Visit [facility] [place] [address] [place] [address] Sarath Rivera MD [address] [place] [address] [place] [address] History of renal transplant (Primary Dx); History of immunosuppressive therapy; Stage 3b chronic kidney disease (HCC); Hypertension documented as of this encounter Visit Diagnoses Not on filedocumented in this encounter Care Teams Digital Asset Manager Relationship Specialty Start Date End Date Onelia Vera MD [address] [place] [id number] PCP - General 02/08/19 documented as of this encounter
== END 2024-09-27 15:48 | disposition home or self-care (01) ==
LOC: HO.HSMS 15:16
PROVIDERS: PCP Internal Medicine; Visit Provider Psychiatry & Neurology Neurology
DX: G25.0 Essential tremor (principal)
CPT/HCPCS: 99214; G2211

== ENCOUNTER → 2024-09-27 15:15 | Outpatient (BNVA) | payer MEDICARE, SELFPAY | PROVIDERS: PCP Internal Medicine; Visit Provider Psychiatry & Neurology Neurology | DX: G25.0 Essential tremor (principal) | CPT/HCPCS: 99212 ==

== ENCOUNTER 2024-12-08 14:29 | Outpatient (AMB) | payer MEDICARE, SELFPAY ==
--- NOTE | 2024-12-08 14:30 | A.OFFVIS_ITS ---
Vital Signs 12/08/24 14:31 Height 5 ft 10 in Weight 154 lb BMI 22.1 BP 110/76 Blood Pressure Location Rt brachial Position Sitting Pulse 55 Pulse Source Pulse Oximeter Pulse Oximetry (%) 98 Oxygen Delivery Method Room Air Intake Visit Reasons: follow up Intake Note: Follow up care Electronic Sales And Service Technician Required: No Accompanied by: Self / Same As Patient Allergies aspirin (ASPIRIN) Allergy (Severe, Verified 12/08/24 14:31) CANNOT TAKE-RENAL TRANSPLANT Medication List - Last Reconciled 12/08/24 by Ester Ontiveros MD acetaminophen (Tylenol Extra Strength) 500 mg PO Q6H PRN atorvastatin 40 mg PO DAILY lorazepam 2 mg PO BEDTIME PRN mycophenolate sodium (Myfortic) 4 mg PO BID prednisone 2.5 mg PO DAILY primidone 100 mg (2 x 50 mg) PO TID propranolol 40 mg PO BID HPI Comments Details: 74y/o male comes for follow up of his familial tremors .He didn't notice any improvement with propranolol so was startes on ERIC for his Right hand . He started using it August 2024 but had some issues and it started working 2 mths ago .It helped with activities of daily living.But the effect is not as consistent as he expected. He does not want to use ERIC anymore- feels it is not helping. He cannot write, had trouble eating with a fork, any actions that needs hand dexterity is hard. He is able to drink fluids.In the evenings he takes alcohol- gin and tonic and sometimes beer which helps his tremor His tremors are worse in the mornings No side effects from primidone He has trouble eating drinking writing or any fine motor skills. [facility] Medical History CAD (coronary artery disease) Cataract Heart disease COPD (chronic obstructive pulmonary disease) HTN (hypertension) Surgical History Kidney transplant recipient Hx of shoulder surgery H/O heart surgery Hx of cholecystectomy Family History Father Tremor Family/Other Cancer Social History Alcohol intake: current Patient Tobacco Use Status: Never used Tobacco Physical Exam Vital Signs: Last Vital Signs Pulse 55 12/08/24 14:31 BP 110/76 12/08/24 14:31 Pulse Ox 98 12/08/24 14:31 Oxygen Delivery Method Room Air 12/08/24 14:31 BMI result Body Mass Index 22.1 Const General: cooperative, healthy appearing and comfortable Nutritional Appearance: average body habitus Orientation/consciousness: patient oriented x3 Eyes Pupils: Equal, round and reactive pupils present Neuro Other: Mild action tremors isatu General: patient oriented x3, tone normal, moves all extremities and no focal m otor deficits Cranial nerves: Yes Equal, round and reactive pupils present, Yes Bilaterally intact EOM present, Yes Nystagmus not present, Yes Normal facial strength present and Yes Midline tongue present Motor exam (neuro): 5/5 motor strength present throughout Coordination: [id number] test normal Assessment & Plan Assessment & Plan (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
[2024-12-08 14:31] VITALS: BP 110/76; PULSE 55; O2SAT 98; BMI 22.1
--- OUTSIDE RECORDS SUMMARY | 2024-12-08 15:47 | XMS_ITS | Encounter Summary ---
Author Organization [facility], Address [address] [address] Phone Care Team Providers Care Textiles And Clothing Teacher Name Role Phone Onelia Vera MD Primary Care Provider [phone] Reason for Visit * Reason Onset Date Comments Med Refill 06/18/2022 Encounter Details Date Type Department Care Team (Late st Contact Info) Description 06/18/2022 Refill [facility] [address] [place] [phone] Geovanni Martinez PA [address] [place] [address] [place] [address] Social History Tobacco Use Types Packs/Day Years [...] Care Team (Late st Contact Info) Description 12/22/2024 10:00 AM EDT Office Visit [facility] [address] [place] [phone] Sarath Rivera MD [address] [place] [address] [place] [phone] documented as of this encounter Visit Diagnoses Not on filedocumented in this encounter Care Teams Textiles And Clothing Teacher Relationship Specialty Start Date End Date Onelia Vera MD [address] [place] [address] PCP - General 02/08/19 documented as of this encounter
--- OUTSIDE RECORDS SUMMARY | 2024-12-08 15:47 | XMS_ITS | Clinical Summary ---
Author Organization [facility], Address [address] [place] [address] [place] [address] Phone Care Team Providers Care Tier Over Name Role Phone Onelia Vera MD Primary [...] 20 mg in the evening. 09/07/2023 Active predniSONE (DELTASONE) 2.5 MG tablet TAKE 1 TABLET BY MOUTH ONCE A DAY 90 tablet 3 04/04/2024 Active mycophenolate (MYFORTIC) 180 MG EC tablet Take 3 tablets (540 mg total) by mouth in the morning and 3 tablets (540 mg total) in the evening. 180 tablet 11 11/02/2024 Active Active Problems Problem Noted Date Diagnosed [...] Encounters Date Type Department Care Team Description 11/02/2024 Orders Only [facility] [place], [address] [place] [phone] Paula Saldana MA 11/01/2024 Documentation Only [facility] [place], [address] [place] [address] Sarath Rivera MD 10/24/2024 Telephone [facility] [address] [place] [address] Paula Saldana MA 09/28/2024 11:15 AM EDT Office Visit [facility] [place] [address] [place] [phone] Sarath Rivera MD History of renal transplant (Primary Dx); History of immunosuppressive therapy; Stage 3b chronic kidney disease (HCC); Hypertension 09/14/2024 Orders Only [facility] [address] [place] [address] Paula Saldana MA History of renal transplant (Primary Dx); History of immunosuppressive therapy; Stage 3b chronic kidney disease (HCC); Hyperlipidemia, not otherwise specified; Vitamin D deficiency, not otherwise specified; Idiopathic gout, not otherwise specified; Hypomagnesemia; Other iron deficiency anemia; 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); Albuminuria, not otherwise specified from Last 3 Months Immunizations Immunization Administration Dates Next Due Influenza Split High Dose Pr eservative Free IM 02/05/2020 Influenza Whole 03/08/2014,02/18/2006 Influenza, MDCK, Quadrivalen t, with preservative 12/11/2016 Influenza, Unspecified 02/07/2020,2017,01/04/2017,04/06,01/04/2015,12/22/2011 Pneumococcal Conjugate 13-Valent 07/05/2014 Pneumococcal Polysaccharide 12/26/2014, 2 Tdap 07/05/2014 Family History Medical History Relation Comments Stroke Father Diabetes Mother Heart disease Sibling brother [place] Relation Status Comments Father Mother Sibling Social [...] Sign Reading Time Taken Comments Blood Pressure 106/60 09/28/2024 11:27 AM EDT Pulse 72 02/23/2023 9:58 AM EST Temperature - - Respiratory Rate 22 07/28/2017 12:0 0 PM EDT Oxygen Saturation - - Inhaled Oxygen Concentration - - Weight 70.7 kg (155 lb 12.8 oz) 025 11:27 AM EDT Height 180.3 cm (5' 11 ) 04/13/2024 9:33 AM EST Body Mass Index 21.73 04/13/2024 9:33 AM EST Plan of Treatment Upcoming Encounters Date Type Department Care Team (Late st Contact Info) Description 12/22/2024 10:00 AM EDT Office Visit [facility] [address] [place] [address] Sarath Rivera MD [address] [place] [address] [place] [address] Health Maintenance Due Date Last Done Comments Influenza Vaccine (#1) 2024 0, 02/05/2020, 03/17/2018, Additional history exists Pneumococcal Vaccine: 50+ Years Completed 12/26/2014, 07/05/2014, 12/12/2011 Pneumococcal Vaccine: Peds (0 to 5 Years) and At-Risk Patients (6 to 49 Years) Discontinued 12/26/2014, 07/05/2014, 12/12/2011 Hepatitis B Vaccine Aged Out No longe r eligible based on patient's age to complete this topic Procedures Procedure Name Priority Date/Time Associated Diagnosis Comments URINALYSIS, COMPLETE 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) Albuminuria, not otherwise specified URINE ALBUMIN / CREATININE RATIO 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) Albuminuria, not otherwise specified CREATINE KINASE 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) Albuminuria, not otherwise specified AST 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) Albuminuria, not otherwise specified ALT 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) Albuminuria, not otherwise specified PTH, INTACT 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) Albuminuria, not otherwise specified IRON PANEL (FE, TIBC, TSAT) 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) Albuminuria, not otherwise specified FERRITIN 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) Albuminuria, not otherwise specified MAGNESIUM 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) Albuminuria, not otherwise specified LIPID PANEL 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) Albuminuria, not otherwise specified URIC ACID 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) Albuminuria, not otherwise specified VITAMIN D 25 HYDROXY 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) Albuminuria, not otherwise specified CBC AND DIFFERENTIAL 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) Albuminuria, not otherwise specified MICROSCOPIC EXAMINATION - DO NOT USE Routine 09/26/2024 9:23 AM EDT from Last 3 Months Results * Urinalysis, Complete w/reflex to Culture (09/26/2024 9:23 AM EDT) Specific [place], Urine 1.012 1.005 - 1.030 [facility] pH Urine 5.5 5.0 - 7.5 [facility] Color, Urine Yellow Yellow [facility] Appearance Urine Clear Clear [facility] WBC Esterase Urine Negative Negative [facility] Protein, Ur Trace Negative/Tra ce [facility] Glucose, Ur Negative Negative [facility] Ketones, Urine Negative Negative [facility] Blood Urine Negative Negative [facility] Bilirubin Urine Negative Negative [facility] [phone] Urobilinogen Urine 0.2 0.2 - 1.0 mg/dL [facility] [phone] Nitrite, Urine Negative Negative [facility] [phone] Microscopic Examination Comment [facility] [phone] Comment:Microscopic follows if indicated. Other Microsc. Observations See below: [facility] Comment:Microscopic was mychal cated and was performed. URINALYSIS REFLEX Comment [facility] [phone] Comment:This specimen will n ot reflex to a Urine Culture. Urine Urine specimen obtained by clean catch procedure / Unknown 09/26/2024 9:23 AM EDT 09/26/2024 Sarath Rivera MD LAB URINE ORDERABLES Final Result Performing Organization Address City/[facility]/ZIP Co de Phone Number [facility] [address] [place] [address] * Mycophenolic Acid and Metabo. (09/26/2024 9:23 AM EDT) Mycophenolic Acid 1.5 1.0 - 3.5 ug/mL [facility] Mycophenolic Acid Glucuronide 44 35 - 100 ug/mL [facility] Comment:Please note refere nce interval change Blood Venous blood / Unknown 09/26/2024 9:23 AM EDT 09/26/2024 Narrative [facility] 09/30/2024 1:05 PM EDT Test(s) 192474-Aweqknaniqno Acid; 025622- Mycophenolic Acid Glucuronide was developed and its performance characteristics determined by [employer] It has not been cleared or approved by the Food and Drug Administration. Sarath Rivera MD LAB BLOOD ORDERABLES Final Result Performing Organization Address City/[facility]/ZIP Co de Phone Number [facility] [address] [place] [address] * Microscopic Examination (09/26/2024 9:23 AM EDT) WBC, Urine None seen 0 - 5 /hpf [facility] RBC, Urine None seen 0 - 2 /hpf [facility] Squamous Epithelial, Urine None seen 0 - 10 /hpf [facility] Casts None seen None seen /lpf [facility] Bacteria, Urine None seen None seen/Few [facility] 09/26/2024 9:23 AM EDT 09/26/2024 Sarath Rivera MD LAB MICROBIOLOGY - GENERAL ORDERABLES Final Result [facility] [address] [place] [address] * (ABNORMAL) Iron Panel (Fe, TIBC, TSAT) (09/26/2024 9:23 AM EDT) Pathologist [facility] TIBC 200(L) 250 - 450 ug/dL [facility] UIBC 138 111 - 343 ug/dL [facility] Iron 62 38 - 169 ug/dL [facility] Iron Saturation (TSat) 31 15 - 55 % [facility] Blood Venous blood / Unknown 09/26/2024 9:23 AM EDT 09/26/2024 Sarath Rivera MD LAB BLOOD ORDERABLES Final Result [facility] [address] [place] [address] * (ABNORMAL) Urine Albumin / Creatinine Ratio (09/26/2024 9:23 AM EDT) Creatinine, Ur 85.7 Not Estab. mg/dL [facility] Albumin, Urine 30.1 Not Estab. ug/mL [facility] Albumin/Creatin ine Ratio 35(H) 0 - 29 mg/g creat [facility] Comment: Normal: 0 - 29 Moderately increased: 30 - 300 Severely increased: >300 Urine Urine specimen obtained by clean catch procedure / Unknown 09/26/2024 9:23 AM EDT 09/26/2024 Sarath Rivera MD LAB URINE ORDERABLES Final Result [facility] [address] [place] [address] * Vitamin D 25 Hydroxy (09/26/2024 9:23 AM EDT) Vitamin D, 25-OH, Total 36.5 30.0 - 100.0 ng/mL [facility] Comment: Vitamin D deficiency has been defined by the [place] of Medicine and an Endocrine Society practice guideline as a level of serum 25-OH vitamin D less than 20 ng/mL (1,2). The Endocrine Society went on to further define vitamin D insufficiency as a level between 21 and 29 ng/mL (2). 1. IOM ([place] of Medicine). 2010. Dietary reference intakes for calcium and D. [place]: The National Academies Press. 2. Selvin MF, [place], Cristina LAST, et al. Evaluation, treatment, and prevention of vitamin D deficiency: an Endocrine Society clinical practice guideline. JCEM. 2010; 96(7):1911-30. Blood Venous blood / Unknown 09/26/2024 9:23 AM EDT 09/26/2024 us Sarath Rivera MD LAB BLOOD ORDERABLES Final Result [facility] [address] [place] [address] * (ABNORMAL) CBC and Differential (09/26/2024 9:23 AM EDT) WBC 9.4 3.4 - 10.8 x10E3/uL [facility] RBC 3.55(L) 4.14 - 5.80 x10E6/uL [facility] Hemoglobin 10.9(L) 13.0 - 17.7 g/dL [facility] Hematocrit 34.8(L) 37.5 - 51.0 % [facility] MCV 98(H) 79 - 97 fL [facility] MCH 30.7 26.6 - 33.0 pg [facility] MCHC 31.3(L) 31.5 - 35.7 g/dL [facility] RDW 13.5 11.6 - 15.4 % [facility] Platelets 168 150 - 450 x10E3/uL [facility] Neutrophils Relative 52 Not Estab. % [facility] Lymphocytes Relative 28 Not Estab. % [facility] Monocytes 14 Not Estab. % [facility] Eosinophils Relative 3 Not Estab. % [facility] Basophils Relative 1 Not Estab. % [facility] Neutrophils Absolute 4.9 1.4 - 7.0 x10E3/uL [facility] Lymphocytes Absolute 2.6 0.7 - 3.1 x10E3/uL [facility] Monocytes Absolute 1.3(H) 0.1 - 0.9 x10E3/uL [facility] Eosinophils Absolute 0.3 0.0 - 0.4 x10E3/uL [facility] Basophils Absolute 0.1 0.0 - 0.2 x10E3/uL [facility] Immature Granulocytes 2 Not Estab. % [facility] Immature Grans (Absolute) 0.2(H) 0.0 - 0.1 x10E3/uL [facility] Comment: (An elevated percentage of Immature Granulocytes has not been found to be clinically significant as a sole clinical predictor of disease. Does NOT include bands or blast cells. associated physiological leukocytosis may also show increased immature granulocytes without clinical significance.) Blood Venous blood / Unknown 09/26/2024 9:23 AM EDT 09/26/2024 Sarath Rivera MD LAB BLOOD ORDERABLES Final Result Performing Organization Address City/[facility]/ZIP Co de Phone Number [facility] [address] [place] [address] * Uric Acid (09/26/2024 9:23 AM EDT) [facility] Uric Acid 7.1 3.8 - 8.4 mg/dL [facility] Comment:Therapeutic target f or gout patients: <6.0 Blood Venous blood / Unknown 09/26/2024 9:23 AM EDT 09/26/2024 Sarath Rivera MD LAB BLOOD ORDERABLES Final Result [facility] [address] [place] [address] * ALT (09/26/2024 9:23 AM EDT) ALT (SGPT) 8 0 - 44 IU/L [facility] Blood Venous blood / Unknown 09/26/2024 9:23 AM EDT 09/26/2024 Sarath Rivera MD LAB BLOOD ORDERABLES Final Result Performing Organization Address City/[facility]/ZIP Co de Phone Number [facility] [address] [place] [address] * AST (09/26/2024 9:23 AM EDT) AST (SGOT) 11 0 - 40 IU/L [facility] Blood Venous blood / Unknown 09/26/2024 9:23 AM EDT 09/26/2024 Sarath Rivera MD LAB BLOOD ORDERABLES Final Result Performing Organization Address [facility] Co de Phone Number [facility] [address] [place] [address] * (ABNORMAL) PTH, Intact (09/26/2024 9:23 AM EDT) PTH 160(H) 15 - 65 pg/mL [facility] Blood Venous blood / Unknown 09/26/2024 9:23 AM EDT 09/26/2024 Sarath Rivera MD LAB BLOOD ORDERABLES Final Result Performing Organization Address City/[facility] Co de Phone Number [facility] [address] [place] [address] * Magnesium (09/26/2024 9:23 AM EDT) Magnesium 1.8 1.6 - 2.3 mg/dL [facility] Blood Venous blood / Unknown 09/26/2024 9:23 AM EDT 09/26/2024 Sarath Rivera MD LAB BLOOD ORDERABLES Final Result Performing Organization Address City/[facility]/ZIP Co de Phone Number [facility] [address] [place] [address] * Ferritin (09/26/2024 9:23 AM EDT) Pathologist [facility] Ferritin 275 30 - 400 ng/mL [facility] Blood Venous blood / Unknown 09/26/2024 9:23 AM EDT 09/26/2024 Sarath Rivera MD LAB BLOOD ORDERABLES Final Result Performing Organization Address [facility] de Phone Number [facility] [address] [place] [address] * CK (09/26/2024 9:23 AM EDT) Pathologist [facility] Creatine Kinase (CK/CPK) 73 41 - 331 U/L [facility] Blood Venous blood / Unknown 09/26/2024 9:23 AM EDT 09/26/2024 Sarath Rivera MD LAB BLOOD ORDERABLES Final Result Performing Organization Address City/[facility] de Phone Number [facility] [address] [place] [address] * (ABNORMAL) Renal Function Panel (09/26/2024 9:23 AM EDT) Pathologist [facility] Glucose 92 70 - 99 mg/dL [facility] BUN 35(H) 8 - 27 mg/dL [facility] Creatinine 2.16(H) 0.76 - 1.27 mg/dL [facility] eGFR CKD-EPI CR 2020 31(L) >59 mL/min/1.7 3 [facility] BUN/Creatinine Ratio 16 10 - 24 [facility] Sodium 141 134 - 144 mmol/L [facility] Potassium 4.6 3.5 - 5.2 mmol/L [facility] Chloride 109(H) 96 - 106 mmol/L [facility] Bicarbonate (CO2) 16(L) 20 - 29 mmol/L [facility] Calcium 9.0 8.6 - 10.2 mg/dL [facility] Albumin 3.7(L) 3.8 - 4.8 g/dL [facility] Phosphorus 3.1 2.8 - 4.1 mg/dL [facility] Blood Venous blood / Unknown 09/26/2024 9:23 AM EDT 09/26/2024 Sarath Rivera MD LAB BLOOD ORDERABLES Final Result [facility] [address] [place] [address] * Lipid panel (09/26/2024 9:23 AM EDT) Cholesterol 104 100 - 199 mg/dL [facility] Triglycerides 86 0 - 149 mg/dL [facility] HDL 40 >39 mg/dL [facility] VLDL Cholesterol Diego 17 5 - 40 mg/dL [facility] LDL Calculated 47 0 - 99 mg/dL [facility] Blood Venous blood / Unknown 09/26/2024 9:23 AM EDT 09/26/2024 Sarath Rivera MD LAB BLOOD ORDERABLES Final Result [facility] [address] [place] [address] from Last 3 Months Insurance Medicare [facility] Care Teams Tier Over Relationship Specialty Start Date End Date Onelia Vera MD [address] [place] [phone] [facility] - General 02/08/19
--- OUTSIDE RECORDS SUMMARY | 2024-12-08 15:47 | XMS_ITS | Encounter Summary ---
Author Organization [facility], Address [address] [address] Phone Care Team Providers Care Electronic Specialist Name Role Phone Onelia Vera MD Primary Care Provider [phone] Reason for Visit * Reason Comments Med Refill Encounter Details Date Type Department Care Team (Late Contact Info) Description 11/19/2022 Refill [facility] [address] [place] [phone] Geovanni Martinez PA [address] [place] [address] Social History Tobacco Use Types [...] Department Care Team (Late Contact Info) Description 12/22/2024 10:00 AM EDT Office Visit [facility] [place] [address] [address] Sarath Rivera MD [address] [place] [address] documented as of this encounter Visit Diagnoses Not on filedocumented in this encounter Care Teams Electronic Specialist Relationship Specialty Start Date End Date Onelia Vera MD [address] [place] [address] PCP - General 02/08/19 documented as of this encounter
--- OUTSIDE RECORDS SUMMARY | 2024-12-08 15:47 | XMS_ITS | Encounter Summary ---
Author Organization [facility], Address [address] [place] [address] Phone Care Team Providers Care Sheetrock Applicator Name Role Phone Onelia Vera MD Primary Care Provider [phone] Reason for Visit * Reason Comments Med Refill Encounter Details Date Type Department Care Team (Late st Contact Info) Description 12/19/2022 Refill [facility] [address] [place] [address] Sarath Rivera MD [address] [place] [address] [place] [address] Social History Tobacco Use Types [...] Office Visit [facility] [address] [place] [address] Sarath Rivera MD [address] [place] [address] [place] [address] documented as of this encounter Visit Diagnoses Not on filedocumented in this encounter Care Teams Sheetrock Applicator Relationship Specialty Start Date End Date Onelia Vera MD [address] [place] [address] PCP - General 02/08/19 documented as of this encounter
--- OUTSIDE RECORDS SUMMARY | 2024-12-08 15:47 | XMS_ITS | Encounter Summary ---
Author Organization [facility], Address [address] [address] Phone Care Team Providers Care Weatherization Crew Leader Name Role Phone Onelia Vera MD Primary Care Provider [phone] Reason for Visit * Reason Comments Med Refill Encounter Details Date Type Department Care Team (Late Contact Info) Description 08/12/2020 Refill [facility] [address] [place] [phone] Geovanni Martinez PA [address] [place] [address] Social History Tobacco Use Types Packs/Day Years [...] Office Visit [facility] [address] [place] [phone] Sarath Rivera MD [address] [place] [address] documented as of this encounter Visit Diagnoses Not on filedocumented in this encounter Care Teams Weatherization Crew Leader Relationship Specialty Start Date End Date Onelia Vera MD [address] [place] [address] PCP - General 02/08/19 documented as of this encounter
--- OUTSIDE RECORDS SUMMARY | 2024-12-08 15:47 | XMS_ITS | Encounter Summary ---
Author Organization [facility], Address [address] [address] Phone Care Team Providers Care It Consulting Director Name Role Phone Onelia Vera MD Primary Care Provider [phone] Encounter Details Date Type Department Care Team (Late st Contact Info) Description 11/01/2024 Documentation Only [facility], [address] [place] [address] Sarath Rivera MD [address] [place] [address] [place] [address] Social History Tobacco Use Types [...] Visit [facility] [address] [place] [address] Sarath Rivera MD [address] [place] [address] [place] [address] documented as of this encounter Visit Diagnoses Not on filedocumented in this encounter Care Teams It Consulting Director Relationship Specialty Start Date End Date Onelia Vera MD [address] [place] [address] PCP - General 02/08/19 documented as of this encounter
--- OUTSIDE RECORDS SUMMARY | 2024-12-08 15:47 | XMS_ITS | Encounter Summary ---
Author Organization [facility], Address [address] [address] Phone Care Team Providers Care Bagging Machine Operator Name Role Phone Onelia Vera MD Primary Care Provider [phone] Encounter Details Date Type Department Care Team (Late st Contact Info) Description 10/22/2021 Documentation Only [facility], [address] [place] [place] [address] [place] [address] [place] [address] Social History Tobacco Use Types [...] Visit [facility] [address] [place] [address] Sarath Rivera MD [address] [place] [address] documented as of this encounter Visit Diagnoses Not on filedocumented in this encounter Care Teams Bagging Machine Operator Relationship Specialty Start Date End Date Onelia Vera MD [address] [place], [place] [id number] PCP - General 02/08/19 documented as of this encounter
--- OUTSIDE RECORDS SUMMARY | 2024-12-08 15:47 | XMS_ITS | Clinical Summary ---
Author Organization [facility] Address [address] [place] [address] Care Team Providers Care Spin Table Operator Name Role Phone Onelia Vera MD [...] 84 05/16/2022 11:32 AM EST Temperature 36.4 C (97.6 F) 05/16/2022 11:32 AM EST Respiratory Rate 18 05/16/2022 11:32 AM EST [...] or (1 - 1-dose 75+ series) 06/13/2023 DTap / Tdap / Td (2 - Td or Tdap) 07/05/2024 07/05/2014 Influenza Vaccine (#1) 2024 , 02/05/2020, 03/17/2018, Additional history exists Pneumococcal Vaccine Completed 12/26/2014, 07/05/2014, 12/22/2011 Hepatitis B Vaccines Aged Out No long er eligible based on patient's age to complete this topic RSV Ped < 20 months Aged Out No longe r eligible based on patient's age to complete this topic Additional Health Concerns Infection Onset Date Last Indicated COVID-19 Confirmed 03/03/2022 03/04/2022 Advance Directives For more information, please contact: [phone] Documents on File Type Date Recorded Patient Legal Billing Specialist Expl anation Advance Directive and Living Will 03/03/2022 11:44 AM Latest Code Status on File Code Status Date Activated Date Inactivated Comments Full Code 03/03/2022 2:27 PM 03/05/2022 8:39 PM Thi s code status was ascertained in the following way: discussion with patient . Care Teams Spin Table Operator Relationship Specialty Start Date End Date Onelia Vera MD [address] [facility] [address] [place] [address] PCP - General Internal Medicine 03/03/22
--- OUTSIDE RECORDS SUMMARY | 2024-12-08 15:47 | XMS_ITS | Encounter Summary ---
Author Organization [facility], Address [address] [address] Phone Care Team Providers Care Technical Training Specialist Name Role Phone Onelia Vera MD Primary Care Provider [phone] Encounter Details Date Type Department Care Team (Late st Contact Info) Description 04/30/2022 Documentation Only [facility], [address] [place] [address] Candie Hopkins [address] [place] [address] Social History Tobacco Use Types Packs/Day [...] Visit [facility] [address] [place] [address] Sarath Rivera MD [address] [place] [address] documented as of this encounter Visit Diagnoses Not on filedocumented in this encounter Care Teams Technical Training Specialist Relationship Specialty Start Date End Date Onelia Vera MD [address] [phone] PCP - General 02/08/19 documented as of this encounter
--- OUTSIDE RECORDS SUMMARY | 2024-12-08 15:47 | XMS_ITS | Encounter Summary ---
Author Organization [facility], Address [address] [address] Phone Care Team Providers Care Assistant Auto Center Manager Name Role Phone Onelia Vera MD Primary Care Provider [phone] Reason for Visit * Reason Comments Med Refill Encounter Details Date Type Department Care Team (Late Contact Info) Description 09/11/2020 Refill [facility] [address] [place] [phone] Deuce Shoemaker MD [address] [place] [address] [place] [address] Social History Tobacco Use Types [...] Visit [facility] [place] [address] [place] [address] Sarath Rivera MD [address] [place] [address] [place] [address] documented as of this encounter Visit Diagnoses Not on filedocumented in this encounter Care Teams Assistant Auto Center Manager Relationship Specialty Start Date End Date Onelia Vera MD [address] [place] [address] PCP - General 02/08/19 documented as of this encounter
--- OUTSIDE RECORDS SUMMARY | 2024-12-08 15:47 | XMS_ITS | Clinical Summary ---
Author Organization [facility] Address [address] [place] [address] Care Team Providers Care Custom Protection Officer Name Role Phone Onelia Vera MD Primary Care Provider [phone] Surgical History Surgery Date Site/Laterality Comments JOINT REPLACEMENT PROCEDURE:JOINT REPLACEMENT JOINT REPLACEMENT Bilateral PROCEDURE:JOINT REPLACEMENT;COMMENT:knees OTHER SURGICAL HISTORY Bilateral PROCEDURE:kidney transplanat Medical History Medical History Date Comments Kidney disease DX:Kidney diseas e Cancer (CMS/HCC V24, CMS/HCC V28) DX:Cancer (HCC);COMMENT:lung, kidney and esophageal Social History Tobacco Use [...] Last Done Comments COVID-19 Vaccine (#1) 1955 Zoster Vaccines (1 of 2) 06/13/1967 Cholesterol Screening (Lipid Panel) 05/05/2023 Falls Risk Assessment 05/05/2023 Hepatitis C Screening 05/05/2023 Social Influencers of Health Screening 05/05/2023 RSV Immunization Adult Patients (1 - 1-dose 75+ series) 06/13/2023 Depression Screening 04/06/2024 DTaP,Tdap,and Td Vaccines (2 - Td or Tdap) 07/05/2024 07/05/2014 Hypertension/CHF/CAD Annual BMP Blood Test 08/25/2024 03/05/2022, 03/04/2022, 03/03/2022 Influenza Vaccine (#1) 2024 0, 02/05/2020, 03/17/2018, Additional history exists Pneumococcal Vaccine: 50+ Years Completed 12/26/2014, 07/05/2014, 12/22/2011 HIB Vaccines Aged Out No longer eligi [...] age to complete this topic Meningococcal B Vaccine Aged Out No l onger eligible based on patient's age to complete this topic RSV Immunization Patients Under 20 months Aged Out No longer eligible based on patient's age to complete this topic Varicella Vaccines Aged Out No longer eligible based on patient's age to complete this topic Care Teams Custom Protection Officer Relationship Specialty Start Date End Date Onelia Vera MD [address] [place] [address] PCP - General 03/03/22
--- OUTSIDE RECORDS SUMMARY | 2024-12-08 15:47 | XMS_ITS | Encounter Summary ---
Author Organization [facility], Address [address] [address] Phone Care Team Providers Care Supply Chain Buyer Name Role Phone Onelia Vera MD Primary Care Provider [phone] Reason for Visit * Reason Comments Med Refill Encounter Details Date Type Department Care Team (Late Contact Info) Description 11/06/2021 Refill [facility] [address] [place] [address] Geovanni Martinez PA [address] [place] [address] Social History Tobacco Use Types [...] Visit [facility] [address] [place] [address] Sarath Rivera MD [address] [facility] [place] [address] documented as of this encounter Visit Diagnoses Not on filedocumented in this encounter Care Teams Supply Chain Buyer Relationship Specialty Start Date End Date Onelia Vera MD [address] [place] [address] PCP - General 02/08/19 documented as of this encounter
== END 2024-12-08 15:00 | disposition home or self-care (01) ==
LOC: HO.HSMS 14:30
PROVIDERS: PCP Internal Medicine; Visit Provider Psychiatry & Neurology Neurology
DX: G25.0 Essential tremor (principal)
CPT/HCPCS: 99214

== ENCOUNTER → 2024-12-08 14:29 | Outpatient (BNVA) | payer MEDICARE, SELFPAY | PROVIDERS: PCP Internal Medicine; Visit Provider Psychiatry & Neurology Neurology | DX: G25.0 Essential tremor (principal) | CPT/HCPCS: 99212 ==

== ENCOUNTER 2025-01-26 13:05 | Outpatient (AMB) | payer MEDICARE, SELFPAY ==
--- NOTE | 2025-01-26 13:02 | MHC.OFFVIS ---
Vital Signs 01/26/25 13:03 Height 5 ft 10 in Weight 153 lb 6 oz BMI 22.0 BP 112/78 Blood Pressure Location Rt brachial Position Sitting Pulse 58 Pulse Source Pulse Oximeter Pulse Oximetry (%) 100 Oxygen Delivery Method Room Air Intake Visit Reasons: follow up Intake Note: Follow up Benign familial tremor Branch Sales And Service Representative Required: No Accompanied by: Self / Same As Patient Allergies aspirin (ASPIRIN) Allergy (Severe, Verified 01/26/25 13:03) CANNOT TAKE-RENAL TRANSPLANT Medication List - Last Reconciled 01/26/25 by Ester Ontiveros MD acetaminophen (Tylenol Extra Strength) 500 mg PO Q6H PRN atorvastatin 40 mg PO DAILY colestipol grams PO lorazepam 2 mg PO BEDTIME PRN lorazepam 1.5 mg PO BEDTIME PRN mycophenolate sodium (Myfortic) 4 mg PO BID prednisone 2.5 mg PO DAILY primidone 100 mg (2 x 50 mg) PO TID propranolol 40 mg PO BID sodium bicarbonate 650 mg PO BID HPI Comments Details: 74y/o male comes for follow up of his familial tremors . He was unable to reach [facility] for MRI guided Ultrasound treatment. History form last visit 12/2024- He didn't notice any improvement with propranolol so was started on ERIC for his Right hand . He started using it August 2024 but had some issues and it started working 2 mths ago .It helped with activities of daily living.But the effect is not as consistent as he expected. He does not want to use ERIC anymore- feels it is not helping. He cannot write, had trouble eating with a fork, any actions that needs hand dexterity is hard. He is able to drink fluids.In the evenings he takes alcohol- gin and tonic and sometimes beer which helps his tremor His tremors are worse in the mornings No side effects from primidone He has trouble eating drinking writing or any fine motor skills. [facility] Medical History CAD (coronary artery disease) Cataract Heart disease COPD (chronic obstructive pulmonary disease) HTN (hypertension) Surgical History Kidney transplant recipient Hx of shoulder surgery H/O heart surgery Hx of cholecystectomy Family History Father Tremor Family/Other Cancer Social History Alcohol intake: current Patient Tobacco Use Status: Never used Tobacco Physical Exam Vital Signs: Last Vital Signs Pulse 58 01/26/25 13:03 BP 112/78 01/26/25 13:03 Pulse Ox 100 01/26/25 13:03 Oxygen Delivery Method Room Air 01/26/25 13:03 BMI result Body Mass Index 22.0 Const General: cooperative, healthy appearing and comfortable Nutritional Appearance: average body habitus Orientation/consciousness: patient oriented x3 Eyes Pupils: Equal, round and reactive pupils present Neuro Other: Mild action tremors isatu General: patient oriented x3, tone normal, moves all extremities and no focal motor deficits Cranial nerves: Yes Equal, round and reactive pupils present, Yes Bilaterally intact EOM present, Yes Nystagmus not present, Yes Normal facial strength present and Yes Midline tongue present Motor exam (neuro): 5/5 motor strength present throughout Coordination: [id number] test normal Assessment & Plan Assessment & Plan (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
[2025-01-26 13:03] VITALS: BP 112/78; PULSE 58; O2SAT 100; BMI 22.0
--- OUTSIDE RECORDS SUMMARY | 2025-01-26 16:27 | XMS_ITS | Encounter Summary ---
Author Organization [facility], Address [address] [address] Phone Care Team Providers Care Insulation Cutter And Former Name Role Phone Onelia Vera MD Primary Care Provider [phone] Encounter Details Date Type Department Care Team (Late st Contact Info) Description 04/30/2022 Documentation Only [facility], [address] [place] [address] Candie Hopkins [address] [place] [address] Social History Tobacco Use Types Packs/Day [...] Care Team (Late st Contact Info) Description 03/17/2025 10:00 AM EST Office Visit [facility] [address] [facility] [place] [address] Sarath Rivera MD [address] [facility] [place] [address] documented as of this encounter Visit Diagnoses Not on filedocumented in this encounter Care Teams Insulation Cutter And Former Relationship Specialty Start Date End Date Onelia Vera MD [address] [place] [address] PCP - General 02/08/19 documented as of this encounter
--- OUTSIDE RECORDS SUMMARY | 2025-01-26 16:27 | XMS_ITS | Clinical Summary ---
Author Organization [facility] Address [address] [place] [address] Care Team Providers Care Solids Control Technician Name Role Phone Onelia Vera MD Primary Care Provider [phone] Surgical History Surgery Date Site/Laterality Comments JOINT [...] age to complete this topic Care Teams Solids Control Technician Relationship Specialty Start Date End Date Onelia Vera MD [address] [place] [address] PCP - General 03/03/22
--- OUTSIDE RECORDS SUMMARY | 2025-01-26 16:27 | XMS_ITS | Encounter Summary ---
Author Organization [facility] [place] [facility], Address [facility] [place] [address] Phone Care Team Providers Care Game Farm Supervisor Name Role Phone Onelia Vera MD Primary Care Provider [phone] Encounter Details Date Type Department Care Team (Late st Contact Info) Description 11/01/2024 Documentation Only [facility], [address] [place] [address] Sarath Rivera MD [address] [place] [address] [place] [address] Social History Tobacco Use Types [...] Visit [facility] [address] [place] [address] Sarath Rivera MD [address] [place] [address] [place] [address] documented as of this encounter Visit Diagnoses Not on filedocumented in this encounter Care Teams Game Farm Supervisor Relationship Specialty Start Date End Date Onelia Vera MD [address] [place], [place] [phone] PCP - General 02/08/19 documented as of this encounter
--- OUTSIDE RECORDS SUMMARY | 2025-01-26 16:27 | XMS_ITS | Clinical Summary ---
Author Organization [facility] Address [address] [place] [address] Care Team Providers Care Flame Brazing Machine Operator Name Role Phone Onelia Vera [...] Advance Directives For more information, please contact: [phone] Documents on File Type Date Recorded Patient Paper Processing Machine Helper Expl anation Advance Directive and Living Will 03/03/2022 11:44 AM Latest Code Status on File Code Status Date Activated Date Inactivated Comments Full Code 03/03/2022 2:27 PM 03/05/2022 8:39 PM Thi s code status was ascertained in the following way: discussion with patient . Care Teams Flame Brazing Machine Operator Relationship Specialty Start Date End Date Onelia Vera MD [address] [facility] [address] [place] [address] PCP - General Internal Medicine 03/03/22
--- OUTSIDE RECORDS SUMMARY | 2025-01-26 16:27 | XMS_ITS | Encounter Summary ---
Author Organization [facility] [place], Address [address] [address] Phone Care Team Providers Care Information Technology Teacher Name Role Phone Onelia Vera MD Primary Care Provider [phone] Reason for Visit * Reason Comments Med Refill Encounter Details Date Type Department Care Team (Late Contact Info) Description 11/19/2022 Refill [facility] [place] [facility] [address] [place] [address] Geovanni Martinez PA [address] [address] Social History Tobacco Use Types [...] Department Care Team (Late Contact Info) Description 03/17/2025 10:00 AM EST Office Visit [facility] [address] [address] Sarath Rivera MD [address] [facility] [address] [place] [address] documented as of this encounter Visit Diagnoses Not on filedocumented in this encounter Care Teams Information Technology Teacher Relationship Specialty Start Date End Date Onelia Vera MD [address] [place], [place] [phone] PCP - General 02/08/19 documented as of this encounter
--- OUTSIDE RECORDS SUMMARY | 2025-01-26 16:27 | XMS_ITS | Encounter Summary ---
Author Organization [facility], Address [address] [address] Phone Care Team Providers Care Veterinary Technologist Name Role Phone Onelia Vera MD Primary Care Provider [phone] Reason for Visit * Reason Comments Med Refill Encounter Details Date Type Department Care Team (Late Contact Info) Description 08/12/2020 Refill [facility] [address] [place] [address] Geovanni Martinez PA [address] [place] [address] Social History Tobacco Use Types Packs/Day Years [...] Office Visit [facility] [address] [place] [address] Sarath Rivera MD [address] [place] [address] documented as of this encounter Visit Diagnoses Not on filedocumented in this encounter Care Teams Veterinary Technologist Relationship Specialty Start Date End Date Onelia Vera MD [address] [place] [address] PCP - General 02/08/19 documented as of this encounter
--- OUTSIDE RECORDS SUMMARY | 2025-01-26 16:27 | XMS_ITS | Encounter Summary ---
Author Organization [facility] [place], Address [address] [address] Phone Care Team Providers Care Product Marketing Programs Manager Name Role Phone Onelia Vera MD Primary Care Provider [phone] Encounter Details Date Type Department Care Team (Late st Contact Info) Description 10/22/2021 Documentation Only [facility] [place], [address] [place] [address] [place] [address] [place] [address] Social History Tobacco Use Types Packs/Day [...] Visit [facility] [place] [facility] [address] [place] [address] Sarath Rivera MD [address] [facility] [place] [address] documented as of this encounter Visit Diagnoses Not on filedocumented in this encounter Care Teams Product Marketing Programs Manager Relationship Specialty Start Date End Date Onelia Vera MD [address] [place] [address] PCP - General 02/08/19 documented as of this encounter
--- OUTSIDE RECORDS SUMMARY | 2025-01-26 16:27 | XMS_ITS | Encounter Summary ---
Author Organization [facility], Address [address] [address] Phone Care Team Providers Care Bodywork Therapist Name Role Phone Onelia Vera MD Primary Care Provider [phone] Reason for Visit * Reason Comments Med Refill Encounter Details Date Type Department Care Team (Late Contact Info) Description 11/06/2021 Refill [facility] [address] [place] [address] Geovanni Martinez PA [address] [place] [address] [place] [address] Social History Tobacco Use Types [...] [facility] [address] [facility] [place] [address] Sarath Rivera MD [address] [facility] [place] [address] documented as of this encounter Visit Diagnoses Not on filedocumented in this encounter Care Teams Bodywork Therapist Relationship Specialty Start Date End Date Onelia Vera MD [address] [place], [place] [id number] PCP - General 02/08/19 documented as of this encounter
--- OUTSIDE RECORDS SUMMARY | 2025-01-26 16:27 | XMS_ITS | Encounter Summary ---
Author Organization [facility], Address [address] [address] Phone Care Team Providers Care Regional Forester Name Role Phone Onelia Vera MD Primary Care Provider [phone] Reason for Visit * Reason Onset Date Comments Med Refill 06/18/2022 Encounter Details Date Type Department Care Team (Late st Contact Info) Description 06/18/2022 Refill [facility] [address] [place] [phone] Geovanni Martinez PA [address] [place] [address] [place] [address] Social History Tobacco Use Types [...] Visit [facility] [address] [place] [phone] Sarath Rivera MD [address] [place] [address] [place] [address] documented as of this encounter Visit Diagnoses Not on filedocumented in this encounter Care Teams Regional Forester Relationship Specialty Start Date End Date Onelia Vera MD [address] [place] [phone] PCP - General 02/08/19 documented as of this encounter
--- OUTSIDE RECORDS SUMMARY | 2025-01-26 16:27 | XMS_ITS | Encounter Summary ---
Author Organization [facility], Address [address] [address] Phone Care Team Providers Care Specialist Employee Labor Relations Name Role Phone Onelia Vera MD Primary Care Provider + [phone] Reason for Visit * Reason Comments Med Refill Encounter Details Date Type Department Care Team (Late Contact Info) Description 09/11/2020 [facility]ill [facility] [address] [place] [phone] Deuce Shoemaker MD [address] [place] [address] [place] [address] Social History Tobacco Use Types [...] Visit [facility] [place] [address] [place] [address] Sarath Rivera MD [address] [place] [address] [place] [address] documented as of this encounter Visit Diagnoses Not on filedocumented in this encounter Care Teams Specialist Employee Labor Relations Relationship Specialty Start Date End Date Onelia Vera MD [address] [place] [address] PCP - General 02/08/19 documented as of this encounter
--- OUTSIDE RECORDS SUMMARY | 2025-01-26 16:28 | XMS_ITS | Clinical Summary ---
Author Organization [facility], Address [address] [place] [address] [place] [address] Phone Care Team Providers Care Production Machine Operator Name Role Phone Onelia Vera MD Primary Care Provider Allergies Active Allergy Reactions Criticality Noted Date Comments Other 06/02/2021 Other reaction(s): trees,pollen Medications amoxicillin (AMOXIL) 500 MG capsule Take 4 capsules by mouth 1 (one) time 8 Active aspirin 81 MG tablet Take 1 tablet by mouth 1 (one) time each day Active allopurinol (ZYLOPRIM) 100 MG tablet Take 2 tablets by mouth 1 (one) time each day Active atorvastatin (LIPITOR) 40 MG tablet Take 1 tablet by mouth 1 (one) time each day Active clopidogrel (PLAVIX) 75 MG tablet Take 1 tablet by mouth 1 (one) time each day 9 Active LORazepam (ATIVAN) 0.5 MG tablet Take 1 tablet by mouth if needed for anxiety 9 Active ipratropium (ATROVENT) 0.03 % nasal spray U 2 SPRAYS IEN UP TO QID 0 Active primidone (MYSOLINE) 50 MG tablet TAKE 1 T PO BID 0 Active Spiriva Respimat 2.5 MCG/ACT aerosol solution INHALE 2 PUFFS INTO THE LUNGS QD 0 Active Cholecalciferol (Vitamin D3) 25 MCG (1000 UT) capsule TAKE 1 CAPSULE BY MOUTH EVERY DAY 90 capsule 3 0 Active fluticasone (FLONASE) 50 MCG/ACT nasal spray SHAKE LIQUID AND USE 1 SPRAY IN EACH NOSTRIL TWICE DAILY 1 Active doxycycline (VIBRAMYCIN) 100 MG capsule TAKE 1 CAPSULE BY MOUTH TWICE DAILY WITH FOOD AND WATER FOR 5 DAYS STARTING 11/16/2020 HOLD ZINC FOR 5 DAYS 1 Active colestipol (COLESTID) 1 g tablet 1 Active primidone (MYSOLINE) 50 MG tablet Take 1 tablet by mouth in the morning and 1 tablet in the evening. 2 Active paricalcitol (ZEMPLAR) 2 MCG capsule Take 1 capsule (2 mcg total) by mouth 3 (three) times a week 36 capsule 3 4 Active propranolol (INDERAL) 20 MG tablet Take 20 mg by mouth in the morning and 20 mg in the evening. 4 Active predniSONE (DELTASONE) 2.5 MG tablet TAKE 1 TABLET BY MOUTH ONCE A DAY 90 tablet 3 4 Active sodium bicarbonate 650 MG tablet Take 1 tablet (650 mg total) by mouth in the morning and 1 tablet (650 mg total) in the evening. 60 tablet 11 5 12/23/19 26 Active mycophenolate (MYFORTIC) 180 MG EC tablet Take 3 tablets (540 mg total) by mouth in the morning and 3 tablets (540 mg total) in the evening. 180 tablet 11 5 Active mycophenolate (MYFORTIC) 180 MG EC tablet Take 3 tablets (540 mg total) by mouth in the morning and 3 tablets (540 mg total) in the evening. 180 tablet 11 5 01/05/20 25 Discontinu ed(Reorder (does not appear on AVS)) Active Problems Problem Noted Date Diagnosed Date [...] Encounters Date Type Department Care Team Description 01/04/2025 Orders Only [facility] [address] [place] [address] Paula Saldana MA 12/22/2024 10:00 AM EDT Office Visit [facility] [address] [place] [phone] Sarath Rivera MD History of renal transplant (Primary Dx); History of immunosuppressive therapy; Stage 3b chronic kidney disease (HCC); Hypertension 12/12/2024 Orders Only [facility] [address] [place] [phone] Paula Saldana MA History of renal transplant (Primary Dx); History of immunosuppressive therapy; Stage 3b chronic kidney disease (HCC); Hyperlipidemia, not otherwise specified; Other iron deficiency anemia; Other specified hypoparathyroidism (HCC); Albuminuria, not otherwise specified 11/02/2024 Orders Only [facility] [address] [place] [phone] Paula Saldana MA 11/01/2024 Documentation Only [facility] [address] [place] [phone] Sarath Rivera MD from Last 3 Months Immunizations Immunization Administration Dates Next Due Influenza Split High Dose Pr eservative Free IM 02/05/2020 Influenza Whole 03/08/2014,02/18/2006 Influenza, MDCK, Quadrivalen t, with preservative 12/11/2016 Influenza, Unspecified 02/07/2020,2017,01/04/2017,04/06,01/04/2015,12/22/2011 Pneumococcal Conjugate 13-Valent 07/05/2014 Pneumococcal Polysaccharide 12/26/2014, 2 Tdap 07/05/2014 Family History Medical History Relation Comments Stroke Father Diabetes Mother Heart disease Sibling brother [place] Relation Status Comments Father Mother Sibling Social [...] [facility] [address] [place] [address] Sarath Rivera MD [address] [place] [address] [place] [phone] Health Maintenance Due Date Last Done Comments [...] Date/Time Associated Diagnosis Comments URINALYSIS, COMPLETE Routine 12/20/2024 10:15 AM EDT History of renal transplant History of immunosuppressive therapy Stage 3b chronic kidney disease (HCC) Hyperlipidemia, not otherwise specified Other iron deficiency anemia Other specified hypoparathyroidism (HCC) Albuminuria, not otherwise specified URINE ALBUMIN / CREATININE RATIO Routine 12/20/2024 10:15 AM EDT History of renal transplant History of immunosuppressive therapy Stage 3b chronic kidney disease (HCC) Hyperlipidemia, not otherwise specified Other iron deficiency anemia Other specified hypoparathyroidism (HCC) Albuminuria, not otherwise specified PTH, INTACT Routine 12/20/2024 10:15 AM EDT History of renal transplant History of immunosuppressive therapy Stage 3b chronic kidney disease (HCC) Hyperlipidemia, not otherwise specified Other iron deficiency anemia Other specified hypoparathyroidism (HCC) Albuminuria, not otherwise specified IRON PANEL (FE, TIBC, TSAT) Routine 12/20/2024 10:15 AM EDT History of renal transplant History of immunosuppressive therapy Stage 3b chronic kidney disease (HCC) Hyperlipidemia, not otherwise specified Other iron deficiency anemia Other specified hypoparathyroidism (HCC) Albuminuria, not otherwise specified FERRITIN Routine 12/20/2024 10:15 AM EDT History of renal transplant History of immunosuppressive therapy Stage 3b chronic kidney disease (HCC) Hyperlipidemia, not otherwise specified Other iron deficiency anemia Other specified hypoparathyroidism (HCC) Albuminuria, not otherwise specified CREATINE KINASE Routine 12/20/2024 10:15 AM EDT History of renal transplant History of immunosuppressive therapy Stage 3b chronic kidney disease (HCC) Hyperlipidemia, not otherwise specified Other iron deficiency anemia Other specified hypoparathyroidism (HCC) Albuminuria, not otherwise specified ALT Routine 12/20/2024 10:15 AM EDT History of renal transplant History of immunosuppressive therapy Stage 3b chronic kidney disease (HCC) Hyperlipidemia, not otherwise specified Other iron deficiency anemia Other specified hypoparathyroidism (HCC) Albuminuria, not otherwise specified AST Routine 12/20/2024 10:15 AM EDT History of renal transplant History of immunosuppressive therapy Stage 3b chronic kidney disease (HCC) Hyperlipidemia, not otherwise specified Other iron deficiency anemia Other specified hypoparathyroidism (HCC) Albuminuria, not otherwise specified CBC AND DIFFERENTIAL Routine 12/20/2024 10:15 AM EDT History of renal transplant History of immunosuppressive therapy Stage 3b chronic kidney disease (HCC) Hyperlipidemia, not otherwise specified Other iron deficiency anemia Other specified hypoparathyroidism (HCC) Albuminuria, not otherwise specified RENAL FUNCTION PANEL Routine 12/20/2024 10:15 AM EDT History of renal transplant History of immunosuppressive therapy Stage 3b chronic kidney disease (HCC) Hyperlipidemia, not otherwise specified Other iron deficiency anemia Other specified hypoparathyroidism (HCC) Albuminuria, not otherwise specified MYCOPHENOLIC ACID AND METABO. Routine 12/20/2024 10:15 AM EDT History of renal transplant History of immunosuppressive therapy Stage 3b chronic kidney disease (HCC) Hyperlipidemia, not otherwise specified Other iron deficiency anemia Other specified hypoparathyroidism (HCC) Albuminuria, not otherwise specified MICROSCOPIC EXAMINATION - DO NOT USE Routine 12/20/2024 10:15 AM EDT from Last 3 Months Results * (ABNORMAL) Urinalysis, Complete w/reflex to Culture (12/20/2024 10:15 AM EDT) Specific [place], Urine 1.014 1.005 - 1.030 [facility] pH Urine 5.5 5.0 - 7.5 [facility] Color, Urine Yellow Yellow [facility] Appearance Urine Clear Clear [facility] WBC Esterase Urine Negative Negative [facility] Protein, Ur 1+(A) Negative/Tra ce [facility] Glucose, Ur Negative Negative [facility] Ketones, Urine Negative Negative [facility] Blood Urine Negative Negative [facility] Bilirubin Urine Negative Negative [facility] Urobilinogen Urine 0.2 0.2 - 1.0 mg/dL [facility] [phone] Nitrite, Urine Negative Negative [facility] [phone] Microscopic Examination See below: [facility] [phone] Comment:Microscopic was mychal cated and was performed. URINALYSIS REFLEX Comment [facility] Comment:This specimen will n ot reflex to a Urine Culture. Urine Urine specimen obtained by clean catch procedure / Unknown 12/20/2024 10:15 AM EDT 12/20/2024 Sarath Rivera MD LAB URINE ORDERABLES Final Result [facility] [address] [place] [address] * Mycophenolic Acid and Metabo. (12/20/2024 10:15 AM EDT) Mycophenolic Acid 3.1 1.0 - 3.5 ug/mL [facility] Mycophenolic Acid Glucuronide 49 35 - 100 ug/mL [facility] Blood Venous blood / Unknown 12/20/2024 10:15 AM EDT 12/20/2024 Narrative [facility] - 12/23/2024 3:06 PM EDT Test(s) 311653-[id number] Acid; 352574- Mycophenolic Acid Glucuronide was developed and its performance characteristics determined by [facility]. It has not been cleared or approved by the Food and Drug Administration. Sarath Rivera MD LAB BLOOD ORDERABLES Final Result [facility] [place] [address] * Microscopic Examination (12/20/2024 10:15 AM EDT) WBC, Urine None seen 0 - 5 /hpf [facility] RBC, Urine None seen 0 - 2 /hpf [facility] Squamous Epithelial, Urine None seen 0 - 10 /hpf [facility] Casts None seen None seen /lpf [facility] Bacteria, Urine None seen None seen/Few [facility] 12/20/2024 10:1 5 AM EDT 12/20/2024 Sarath Rivera MD LAB MICROBIOLOGY - GENERAL ORDERABLES Final Result Performing Organization Address [facility] Co de Phone Number [facility] [address] [place] [address] * (ABNORMAL) Iron Panel (Fe, TIBC, TSAT) (12/20/2024 10:15 AM EDT) Pathologist [facility] TIBC 233(L) 250 - 450 ug/dL [facility] UIBC 153 111 - 343 ug/dL [facility] Iron 80 38 - 169 ug/dL [facility] Iron Saturation (TSat) 34 15 - 55 % [facility] Blood Venous blood / Unknown 12/20/2024 10:15 AM EDT 12/20/2024 Sarath Rivera MD LAB BLOOD ORDERABLES Final Result Performing Organization Address City/[facility]/ZIP Co de Phone Number [facility] [address] [place] [address] * (ABNORMAL) Urine Albumin / Creatinine Ratio (12/20/2024 10:15 AM EDT) Pathologist [facility] Creatinine, Ur 98.3 Not Estab. mg/dL [facility] Albumin, Urine 139.0 Not Estab. ug/mL [facility] Albumin/Creatin ine Ratio 141(H) 0 - 29 mg/g creat [facility] Comment: Normal: 0 - 29 Moderately increased: 30 - 300 Severely increased: >300 Urine Urine specimen obtained by clean catch procedure / Unknown 12/20/2024 10:15 AM EDT 12/20/2024 us Sarath Rivera MD LAB URINE ORDERABLES Final Result [facility] [address] [place] [address] * (ABNORMAL) CBC and Differential (12/20/2024 10:15 AM EDT) WBC 9.6 3.4 - 10.8 x10E3/uL [facility] RBC 3.94(L) 4.14 - 5.80 x10E6/uL [facility] Hemoglobin 12.1(L) 13.0 - 17.7 g/dL [facility] Hematocrit 37.5 37.5 - 51.0 % [facility] MCV 95 79 - 97 fL [facility] MCH 30.7 26.6 - 33.0 pg [facility] MCHC 32.3 31.5 - 35.7 g/dL [facility] RDW 12.6 11.6 - 15.4 % [facility] Platelets 175 150 - 450 x10E3/uL [facility] Neutrophils Relative 61 Not Estab. % [facility] Lymphocytes Relative 26 Not Estab. % [facility] Monocytes 8 Not Estab. % [facility] Eosinophils Relative 2 Not Estab. % [facility] Basophils Relative 1 Not Estab. % [facility] Neutrophils Absolute 6.0 1.4 - 7.0 x10E3/uL [facility] Lymphocytes Absolute 2.5 0.7 - 3.1 x10E3/uL [facility] Monocytes Absolute 0.8 0.1 - 0.9 x10E3/uL [facility] Eosinophils Absolute 0.2 0.0 - 0.4 x10E3/uL [facility] Basophils Absolute 0.1 0.0 - 0.2 x10E3/uL [facility] Immature Granulocytes 2 Not Estab. % [facility] Immature Grans (Absolute) 0.1 0.0 - 0.1 x10E3/uL [facility] Blood Venous blood / Unknown 12/20/2024 10:15 AM EDT 12/20/2024 Sarath Rivera MD LAB BLOOD ORDERABLES Final Result [facility] [address] [place] [address] * ALT (12/20/2024 10:15 AM EDT) ALT (SGPT) 15 0 - 44 IU/L [facility] Blood Venous blood / Unknown 12/20/2024 10:15 AM EDT 12/20/2024 Sarath Rivera MD LAB BLOOD ORDERABLES Final Result [facility] [address] [place] [address] * AST (12/20/2024 10:15 AM EDT) AST (SGOT) 15 0 - 40 IU/L [facility] Blood Venous blood / Unknown 12/20/2024 10:15 AM EDT 12/20/2024 Sarath Rivera MD LAB BLOOD ORDERABLES Final Result [facility] [address] [place] [address] * (ABNORMAL) PTH, Intact (12/20/2024 10:15 AM EDT) PTH 134(H) 15 - 65 pg/mL [facility] Blood Venous blood / Unknown 12/20/2024 10:15 AM EDT 12/20/2024 Sarath Rivera MD LAB BLOOD ORDERABLES Final Result Performing Organization Address City/[facility]/ZIP Co de Phone Number [facility] [address] [place] [address] * Ferritin (12/20/2024 10:15 AM EDT) Ferritin 240 30 - 400 ng/mL [facility] Blood Venous blood / Unknown 12/20/2024 10:15 AM EDT 12/20/2024 Sarath Rivera MD LAB BLOOD ORDERABLES Final Result [facility] [address] [place] [address] * CK (12/20/2024 10:15 AM EDT) Creatine Kinase (CK/CPK) 169 41 - 331 U/L [facility] Blood Venous blood / Unknown 12/20/2024 10:15 AM EDT 12/20/2024 Sarath Rivera MD LAB BLOOD ORDERABLES Final Result [facility] [address] [place] [address] * (ABNORMAL) Renal Function Panel (12/20/2024 10:15 AM EDT) Pathologist [facility] Glucose 129(H) 70 - 99 mg/dL [facility] BUN 44(H) 8 - 27 mg/dL [facility] Creatinine 2.33(H) 0.76 - 1.27 mg/dL [facility] eGFR CKD-EPI CR 2020 28(L) >59 mL/min/1.7 3 [facility] BUN/Creatinine Ratio 19 10 - 24 [facility] Sodium 141 134 - 144 mmol/L [facility] Potassium 4.8 3.5 - 5.2 mmol/L [facility] Chloride 108(H) 96 - 106 mmol/L [facility] Bicarbonate (CO2) 17(L) 20 - 29 mmol/L [facility] Calcium 9.1 8.6 - 10.2 mg/dL [facility] Albumin 4.2 3.8 - 4.8 g/dL [facility] Phosphorus 3.3 2.8 - 4.1 mg/dL [facility] Blood Venous blood / Unknown 12/20/2024 10:15 AM EDT 12/20/2024 Sarath Rivera MD LAB BLOOD ORDERABLES Final Result [facility] [address] [place] [address] from Last 3 Months Insurance Medicare [facility] Care Teams Production Machine Operator Relationship Specialty Start Date End Date Onelia Vera MD [address] [place] [phone] PCP - General 02/08/19
--- OUTSIDE RECORDS SUMMARY | 2025-01-26 16:28 | XMS_ITS | Encounter Summary ---
Author Organization [facility], Address [address] [place] [address] Phone Care Team Providers Care Automotive Professional Name Role Phone Onelia Vera MD Primary Care Provider [phone] Reason for Visit * Reason Comments Med Refill Encounter Details Date Type Department Care Team (Late st Contact Info) Description 12/19/2022 Refill [facility] [address] [place] [address] Sarath Rivera MD [address] [place] [address] [place] [address] Social History Tobacco Use Types [...] Office Visit [facility] [address] [place] [address] Sarath Rivera MD [address] [place] [address] [place] [address] documented as of this encounter Visit Diagnoses Not on filedocumented in this encounter Care Teams Automotive Professional Relationship Specialty Start Date End Date Onelia Vera MD [address] [place] [phone] PCP - General 02/08/19 documented as of this encounter
== END 2025-01-26 13:37 | disposition home or self-care (01) ==
LOC: HO.HSMS 13:05
PROVIDERS: PCP Internal Medicine; Visit Provider Psychiatry & Neurology Neurology
DX: G25.0 Essential tremor (principal)
CPT/HCPCS: 99214

== ENCOUNTER → 2025-01-26 13:05 | Outpatient (BNVA) | payer MEDICARE, SELFPAY | PROVIDERS: PCP Internal Medicine; Visit Provider Psychiatry & Neurology Neurology | DX: G25.0 Essential tremor (principal) | CPT/HCPCS: 99212 ==